=== PATIENT | female | born 1970 | race Caucasian/White ===

== ENCOUNTER 2019-02-03 23:35 | Emergency (ER) | payer OTHER ==
[2019-02-03] MEDS ORDERED: predniSONE 20 MG Tab PO ONE (23:36)
--- NOTE | 2019-02-03 23:57 | EDM.PDOC ---
ED HPI GENERAL MEDICAL PROBLEM - General Chief Complaint: Respiratory Problem Stated Complaint: RESPITORY Time Seen by Provider: 02/03/19 23:54 Source of Information: Reports: Patient History Limitations: Reports: No Limitations - History of Present Illness INITIAL COMMENTS - FREE TEXT/NARRATIVE: Cough x 2 days,associated with wheezing,sob. on treatment for Sinusitis. She has tried her nephews inhaler,felt better. Denies fever or chills ,or chest pain. Upper Chest Pain Score (Numeric/FACES): 4 - Related Data Allergies Allergy/AdvReac Type Severity Reaction Status Date / Time latex Allergy Cannot Verified 02/03/19 23:47 Remember morphine Allergy Cannot Verified 02/03/19 23:47 Remember Penicillins Allergy Cannot Verified 02/03/19 23:47 Remember Home Meds: Home Meds NK [No Known Home Meds] 02/03/19 [History] ED ROS GENERAL - Review of Systems Review Of Systems: ROS reveals no pertinent complaints other than HPI. ED EXAM, GENERAL - Physical Exam Exam: See Below Exam Limited By: No Limitations General Appearance: Alert, WD/WN, No Apparent Distress Ear Exam: Bilateral Ear: Auricle Normal, Canal Normal, TM normal Nose: Normal Inspection Throat/Mouth: Normal Inspection Respiratory/Chest: No Respiratory Distress, Lungs Clear. No: Respiratory Distress, Wheezing Cardiovascular: Normal Peripheral Pulses, Regular Rate, Rhythm Course - Vital Signs Last Recorded V/S: Last Vital Signs Temp 98.0 F 02/03/19 23:35 Pulse 97 02/03/19 23:55 Resp 18 02/03/19 23:55 BP 134/90 02/03/19 23:55 Pulse Ox 98 02/03/19 23:55 - Orders/Labs/Meds Meds: Medications Discontinued Medications Generic Name Dose Route Start Last Admin Trade Name Freq PRN Reason Stop Dose Admin Prednisone 160 mg 02/03/19 23:36 Prednisone PO 02/03/19 23:37 .STK-MED ONE Departure - Departure Time of Disposition: 23:56 Disposition: Home, Self-Care 01 Condition: Good Clinical Impression: Acute bronchiolitis - Discharge Information Instructions: Prednisone tablets, Steps to Quit Smoking, Acute Bronchitis, Adult Referrals: PCP,Unknown [Primary Care Provider] - Forms: ED Department Discharge Additional Instructions: Follow up as needed Increased fluids Stop smoking - Problem List & Annotations (1) Acute bronchitis SNOMED Code(s): 32818519 Code(s): J20.9 - ACUTE BRONCHITIS, UNSPECIFIED Status: Acute Qualifiers: Bronchitis organism: unspecified organism Qualified Code(s): J20.9 - Acute bronchitis, unspecified - Problem List Review Problem List Initiated/Reviewed/Updated: Yes - Assessment/Plan Plan: Prednisone 20 mg po bid. Tobacco cessation
== END 2019-02-04 00:03 | disposition home or self-care (01) ==
LOC: FB.ED 23:35
DX: J21.9 Acute bronchiolitis, unspecified (principal); Z88.5 Allergy status to narcotic agent; Z91.040 Latex allergy status; Z88.0 Allergy status to penicillin
CPT/HCPCS: 99282; A9270

== ENCOUNTER 2019-07-23 14:38 | Emergency (ER) | payer OTHER ==
[2019-07-23] MEDS ORDERED: metroNIDAZOLE 500 MG Tab PO ONE (14:39)
[2019-07-23] MEDS ORDERED: Acetaminophen/HYDROcodone 325-5 MG Tab PO ONE (14:39)
[2019-07-23] MEDS ORDERED: Levofloxacin 750 MG Tab PO ONE (14:39)
[2019-07-23] MEDS ORDERED: Acetaminophen/HYDROcodone 325-10 MG Tab PO ONE (14:59)
[2019-07-23] MEDS ORDERED: Ondansetron 4 MG Tab.DIS PO ONE (15:03)
--- NOTE | 2019-07-23 15:04 | EDM.PDOC ---
ED HPI GENERAL MEDICAL PROBLEM - General Chief Complaint: Abdominal Pain Stated Complaint: DIVERTICULITIS Time Seen by Provider: 07/23/19 15:01 Source of Information: Reports: Patient History Limitations: Reports: No Limitations - History of Present Illness INITIAL COMMENTS - FREE TEXT/NARRATIVE: Presents with LLQ abdominal pain x 2 days associated w/ nausea, chills, diarrhea , and headache. History of recurrent diverticulitis. Prior surgical history includes cholecystectomy, appendectomy and hysterectomy. 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 Duration: Day(s): (2) Location: Reports: Abdomen Severity: Moderate mid abd Pain Score (Numeric/FACES): 8 - Related Data Allergies Allergy/AdvReac Type Severity Reaction Status Date / Time latex Allergy Cannot Verified 02/03/19 23:47 Remember morphine Allergy Cannot Verified 02/03/19 23:47 Remember Penicillins Allergy Cannot Verified 02/03/19 23:47 Remember Home Meds: Home Meds Acetaminophen/HYDROcodone [[place] 325-5 MG] 1 - 2 tab PO Q6H PRN #12 tab [Rx] Levofloxacin [Levaquin] 750 mg PO DAILY #7 tablet 07/23/19 [Rx] levoFLOXacin [Levaquin] 750 mg PO DAILY 3 Days #3 tab 07/23/19 [Rx] metroNIDAZOLE [Flagyl] 500 mg PO QID #12 tab 07/23/19 [Rx] metroNIDAZOLE [Flagyl] 500 mg PO QID #28 tab 07/23/19 [Rx] Past Medical History Respiratory History: Reports: Other (See Below) Other Respiratory History: Pneumonia last year Gastrointestinal History: Reports: Diverticulosis Genitourinary History: Reports: Other (See Below) Other Genitourinary History: One fx kidney. One non fx. 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 Non CA. Female Surgical History: Reports: Hysterectomy Social & Family History - Family History Family Medical History: Noncontributory - Tobacco Use Smoking Status *Q: Current Every Day Smoker Tobacco Use Within Last Twelve Months: Cigarettes - Caffeine Use Caffeine Use: Reports: Coffee - Alcohol Use Alcohol Use History: Yes Alcohol Use in Last Twelve Months: Yes Alcohol Use Frequency: Rarely ED ROS GENERAL - Review of Systems Review Of Systems: Comprehensive ROS is negative, except as noted in HPI. ED EXAM, GI/ABD - Physical Exam Exam: See Below Exam Limited By: No Limitations General Appearance: Alert, WD/WN, No Apparent Distress Throat/Mouth: No Airway Compromise Head: Atraumatic, Normocephalic Neck: Full Range of Motion Respiratory/Chest: No Respiratory Distress, Lungs Clear, Normal Breath Sounds Cardiovascular: Regular Rate, Rhythm, No Murmur GI/Abdominal Exam: Normal Bowel Sounds, Soft, No Distention, Tender (LLQ) Back Exam: Full Range of Motion Extremities: Normal Range of Motion Neurological: Alert, Normal Cognition Psychiatric: Normal Affect, Normal Mood Skin Exam: Warm, Dry, Intact Course - Vital Signs Last Recorded V/S: Last Vital Signs Temp 36.3 C 07/23/19 14:38 Pulse 93 07/23/19 14:38 Resp 17 07/23/19 14:38 BP 118/84 07/23/19 14:38 Pulse Ox 97 07/23/19 14:38 - Orders/Labs/Meds Orders: Active Orders 24 hr Category Date Time Status Abdomen Pelvis wo Cont [CT] Stat Exams 07/23/19 15:00 Taken Labs: Laboratory Tests 07/23/19 07/23/19 07/23/19 Range/Units 15:10 15:10 15:10 WBC 15.7 H (4.5-12.0) X10-3/uL RBC 5.08 (3.23-5.20) x10(6)uL Hgb 14.9 (11.5-15.5) g/dL Hct 44.2 (30.0-51.3) % MCV 87.1 (80-96) fL MCH 29.3 (27.7-33.6) pg MCHC 33.7 (32.2-35.4) g/dL RDW 13.8 (11.5-15.5) % Plt Count 264 (125-369) X10(3)uL MPV 8.9 (7.4-10.4) fL Neut % (Auto) 64.4 (46-82) % Lymph % (Auto) 29.6 (13-37) % [place] % (Auto) 4.6 (4-12) % Eos % (Auto) 1 (1.0-5.0) % Baso % (Auto) 0 (0-2) % Neut # (Auto) 10.1 H (1.6-8.3) # Lymph # (Auto) 4.6 (0.6-5.0) # [place] # (Auto) 0.7 (0.0-1.3) # Eos # (Auto) 0.2 (0.0-0.8) # Baso # (Auto) 0.1 (0.0-0.2) # Sodium 141 (135-145) mmol/L Potassium 3.6 (3.5-5.3) mmol/L Chloride 104 (100-110) mmol/L Carbon Dioxide 24 (21-32) mmol/L BUN 11 (7-18) mg/dL Creatinine 1.2 H (0.55-1.02) mg/dL Est Cr Clr Drug Dosing TNP Estimated GFR (MDRD) 48 L (>60) BUN/Creatinine Ratio 9.2 (9-20) Glucose 173 H (80-116) mg/dL Calcium 9.0 (8.6-10.2) mg/dL Total Bilirubin 0.4 (0.1-1.3) mg/dL AST 18 (5-25) IU/L ALT 49 H (12-36) U/L Alkaline Phosphatase 113 H (56-112) IU/L Total Protein 7.8 (6.0-8.0) g/dL Albumin 3.4 L (3.5-5.2) g/dL Globulin 4.4 g/dL Albumin/Globulin Ratio 0.8 Lipase 97 (73-393) U/L Urine Color (YELLOW) Urine Appearance (CLEAR) Urine pH (5.0-6.5) Ur Specific [place] (1.010-1.025) Urine Protein (NEGATIVE) mg/dL Urine Glucose (UA) (NORMAL) mg/dL Urine Ketones (NEGATIVE) mg/dL Urine Occult Blood (NEGATIVE) Urine Nitrite (NEGATIVE) Urine Bilirubin (NEGATIVE) Urine Urobilinogen (NEGATIVE) mg/dL Ur Leukocyte Esterase (NEGATIVE) Urine RBC (0-5) Urine WBC (0-5) Ur Squamous Epith Cells (NS,R,O) Urine Bacteria (NS) Urine Mucus (NS) 07/23/19 Range/Units 15:22 WBC (4.5-12.0) X10-3/uL RBC (3.23-5.20) x10(6)uL Hgb (11.5-15.5) g/dL Hct (30.0-51.3) % MCV (80-96) fL MCH (27.7-33.6) pg MCHC (32.2-35.4) g/dL RDW (11.5-15.5) % Plt Count (125-369) X10(3)uL MPV (7.4-10.4) fL Neut % (Auto) (46-82) % Lymph % (Auto) (13-37) % [place] % (Auto) (4-12) % Eos % (Auto) (1.0-5.0) % Baso % (Auto) (0-2) % Neut # (Auto) (1.6-8.3) # Lymph # (Auto) (0.6-5.0) # [place] # (Auto) (0.0-1.3) # Eos # (Auto) (0.0-0.8) # Baso # (Auto) (0.0-0.2) # Sodium (135-145) mmol/L Potassium (3.5-5.3) mmol/L Chloride (100-110) mmol/L Carbon Dioxide (21-32) mmol/L BUN (7-18) mg/dL Creatinine (0.55-1.02) mg/dL Est Cr Clr Drug Dosing Estimated GFR (MDRD) (>60) BUN/Creatinine Ratio (9-20) Glucose (80-116) mg/dL Calcium (8.6-10.2) mg/dL Total Bilirubin (0.1-1.3) mg/dL AST (5-25) IU/L ALT (12-36) U/L Alkaline Phosphatase (56-112) IU/L Total Protein (6.0-8.0) g/dL Albumin (3.5-5.2) g/dL Globulin g/dL Albumin/Globulin Ratio Lipase (73-393) U/L Urine Color Yellow (YELLOW) Urine Appearance Cloudy (CLEAR) Urine pH 5.0 (5.0-6.5) Ur Specific [place] 1.025 (1.010-1.025) Urine Protein 30 H (NEGATIVE) mg/dL Urine Glucose (UA) Normal (NORMAL) mg/dL Urine Ketones 15 H (NEGATIVE) mg/dL Urine Occult Blood Moderate H (NEGATIVE) Urine Nitrite Negative (NEGATIVE) Urine Bilirubin Small H (NEGATIVE) Urine Urobilinogen Normal (NEGATIVE) mg/dL Ur Leukocyte Esterase Negative (NEGATIVE) Urine RBC 5-10 H (0-5) Urine WBC 0-5 (0-5) Ur Squamous Epith Cells Moderate H (NS,R,O) Urine Bacteria Moderate H (NS) Urine Mucus Moderate H (NS) Meds: Medications Discontinued Medications Generic Name Dose Route Start Last Admin Trade Name Freq PRN Reason Stop Dose Admin Hydrocodone Bitart/Acetaminophen 1 tab 07/23/19 14:59 07/23/19 15:14 [place] 325-10 Mg PO 07/23/19 15:00 1 tab ONETIME ONE Administration Iopamidol 100 ml 07/23/19 15:05 Isovue-370 (76%) IV 07/23/19 15:06 ONETIME ONE Ondansetron HCl 4 mg 07/23/19 15:03 07/23/19 15:13 Zofran Odt PO 07/23/19 15:04 4 mg ONETIME ONE Administration - Radiology Interpretation Free Text/Narrative:: CT Abd/Pelvis w/o contrast: Acute uncomplicated sigmoid diverticulitis. No perforation or abscess. ([facility], Dr. Cueva) - Re-Assessments/Exams Free Text/Narrative Re-Assessment/Exam: 07/23/19 15:54 Pain improved after [place] 10/325 PO. Departure - Departure Time of Disposition: 15:56 Disposition: Home, Self-Care 01 Condition: Good Clinical Impression: Sigmoid diverticulitis - Discharge Information *PRESCRIPTION DRUG MONITORING PROGRAM REVIEWED*: Yes *COPY OF PRESCRIPTION DRUG MONITORING REPORT IN PATIENT DRAKE: Not Applicable Prescriptions: Acetaminophen/HYDROcodone [[place] 325-5 MG] 1 - 2 tab PO Q6H PRN #12 tab PRN Reason: Pain Levofloxacin [Levaquin] 750 mg PO DAILY #7 tablet levoFLOXacin [Levaquin] 750 mg PO DAILY 3 Days #3 tab metroNIDAZOLE [Flagyl] 500 mg PO QID #12 tab metroNIDAZOLE [Flagyl] 500 mg PO QID #28 tab Instructions: Diverticulitis, [id number] Referrals: Klaudia Olvera NP [Primary Care Provider] - 3 Days Forms: ED Department Discharge Additional Instructions: Fill the prescriptions for Levaquin, Flagyl and [place] and take as directed. Follow up with your primary physician in 3-4 days. Return to the ER if symptoms worsen. Sepsis Event Note - Focused Exam Vital Signs: Vital Signs Temp Pulse Resp BP Pulse Ox 07/23/19 14:38 36.3 C 93 17 118/84 97 Date Exam was Performed: 07/23/19 Time Exam was Performed: 15:53 - My Orders Last 24 Hours: My Active Orders 07/23/19 15:00 Abdomen Pelvis wo Cont [CT] Stat - Assessment/Plan Last 24 Hours: My Active Orders 07/23/19 15:00 Abdomen Pelvis wo Cont [CT] Stat
[2019-07-23] MEDS ORDERED: Iopamidol 755 Mg/ML 100 ML Bottle IV ONE (15:05)
[2019-07-23] MEDS ORDERED: Levofloxacin 750 MG Tab PO SCH (16:15)
[2019-07-23] MEDS ORDERED: metroNIDAZOLE 500 MG Tab PO SCH (17:00)
== END 2019-07-23 16:28 | disposition home or self-care (01) ==
LOC: FB.ED 14:38
DX: K57.32 Diverticulitis of large intestine without perforation or abscess without bleeding (principal); E66.9 Obesity, unspecified; Z68.34 Body mass index [BMI] 34.0-34.9, adult; F17.210 Nicotine dependence, cigarettes, uncomplicated; Z88.5 Allergy status to narcotic agent; Z88.0 Allergy status to penicillin; Z91.040 Latex allergy status; Z79.899 Other long term (current) drug therapy
CPT/HCPCS: 36415; 74176; 80053; 81001; 83690; 85025; 99284; A9270

== ENCOUNTER 2020-02-10 12:27 | Inpatient (IN) | payer OTHER ==
[2020-02-10] MEDS ORDERED: HYDROmorphone 2 MG/ML SDV IVPUSH ONE (13:17)
[2020-02-10] MEDS ORDERED: Sodium Chloride 0.9% 1,000 ML IV ONE (13:17)
[2020-02-10] MEDS ORDERED: Ondansetron 4 MG/2 ML SDV IVPUSH ONE (13:17)
--- NOTE | 2020-02-10 13:17 | EDM.PDOC ---
ED HPI GENERAL MEDICAL PROBLEM - General Stated Complaint: STOMACH PAIN Time Seen by Provider: 02/10/20 14:00 Source of Information: Reports: Patient History Limitations: Reports: No Limitations - History of Present Illness INITIAL COMMENTS - FREE TEXT/NARRATIVE: pt comes in ambulatory with c/o abd pain building up over the past week, now describe dull constant pain all across her abd, with nusea and loos stool, denies fever, chills or any other associated sx, report Hx of hysterectomy, appendectomy, cholecystectomy and Hx of diverticulitis. Abdomen Pain Score (Numeric/FACES): 10 - Related Data Allergies Allergy/AdvReac Type Severity Reaction Status Date / Time latex Allergy Cannot Verified 02/03/19 23:47 Remember morphine Allergy Cannot Verified 02/03/19 23:47 Remember Penicillins Allergy Cannot Verified 02/03/19 23:47 Remember Home Meds: Home Meds Acetaminophen/HYDROcodone [[place] 325-5 MG] 1 - 2 tab PO Q6H PRN #12 tab 07/23/19 [Rx] levoFLOXacin [Levaquin] 750 mg PO DAILY #7 tablet 07/23/19 [Rx] levoFLOXacin [Levaquin] 750 mg PO DAILY 3 Days #3 tab 07/23/19 [Rx] metroNIDAZOLE [Flagyl] 500 mg PO QID #12 tab 07/23/19 [Rx] metroNIDAZOLE [Flagyl] 500 mg PO QID #28 tab 07/23/19 [Rx] Past Medical History Respiratory History: Reports: Other (See Below) Other Respiratory History: Pneumonia last year Gastrointestinal History: Reports: Diverticulosis Genitourinary History: Reports: Other (See Below) Other Genitourinary History: One fx kidney. One non fx. 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 Non CA. Female Surgical History: Reports: Hysterectomy Social & Family History - Family History Family Medical History: Noncontributory - Caffeine Use Caffeine Use: Reports: Coffee ED ROS GENERAL - Review of Systems Review Of Systems: See Below Constitutional: Reports: Fatigue. Denies: Fever, Chills HEENT: Reports: No Symptoms Respiratory: Reports: No Symptoms Cardiovascular: Reports: No Symptoms GI/Abdominal: Reports: Abdominal Pain, Anorexia, Diarrhea, Nausea. Denies: Black Stool, Vomiting : Reports: No Symptoms Musculoskeletal: Reports: No Symptoms Skin: Reports: No Symptoms Neurological: Reports: No Symptoms Psychiatric: Reports: No Symptoms ED EXAM, GENERAL - Physical Exam Exam: See Below Exam Limited By: No Limitations General Appearance: Alert, Moderate Distress Eye Exam: Bilateral Eye: Normal Inspection Ears: Normal External Exam Nose: Normal Inspection Throat/Mouth: Normal Inspection Neck: Normal Inspection, Supple, Non-Tender Respiratory/Chest: No Respiratory Distress, Lungs Clear, Normal Breath Sounds Cardiovascular: Normal Peripheral Pulses, Regular Rate, Rhythm GI/Abdominal: Normal Bowel Sounds, Soft, Non-Tender Extremities: Normal Inspection, Normal Range of Motion Neurological: Alert, Oriented, CN II-XII Intact Skin Exam: Warm Course - Vital Signs Text/Narrative:: labs and results were explained to pt. pt is resting comfortable after fluids, zofran znd dilaudid. she has acute diverticulitis , discussed with Dr Holder and she was in acceptance of pt care. cipro and flagyl were started. Last Recorded V/S: Last Vital Signs Temp 35.9 C L 02/10/20 14:04 Pulse 68 02/10/20 14:04 Resp 18 02/10/20 14:04 BP 98/67 02/10/20 14:04 Pulse Ox 93 L 02/10/20 14:04 - Orders/Labs/Meds Orders: Active Orders 24 hr Category Date Time Status Abdomen Pelvis wo Cont [CT] Stat Exams 02/10/20 14:18 Taken Sodium Chloride 0.9% [Normal Saline] 1,000 ml Med 02/10/20 13:17 Active IV .BOLUS Medication Orders Sodium Chloride (Normal Saline) 1,000 mls @ 999 drops/hr IV .BOLUS ONE Stop: 02/11/20 04:17 Last Admin: 02/10/20 13:40 Dose: 999 drops/hr Documented by: MAK Labs: Laboratory Tests 02/10/20 02/10/20 02/10/20 Range/Units 13:30 13:30 13:30 WBC 17.0 H (4.5-12.0) X10-3/uL RBC 5.38 H (3.23-5.20) x10(6)uL Hgb 15.3 (11.5-15.5) g/dL Hct 46.8 (30.0-51.3) % MCV 87.0 (80-96) fL MCH 28.5 (27.7-33.6) pg MCHC 32.8 (32.2-35.4) g/dL RDW 14.3 (11.5-15.5) % Plt Count 251 (125-369) X10(3)uL Sodium 138 (135-145) mmol/L Potassium 3.8 (3.5-5.3) mmol/L Chloride 102 (100-110) mmol/L Carbon Dioxide 27 (21-32) mmol/L BUN 17 (7-18) mg/dL Creatinine 1.6 H (0.55-1.02) mg/dL Est Cr Clr Drug Dosing TNP Estimated GFR (MDRD) 34 L (>60) BUN/Creatinine Ratio 10.6 (9-20) Glucose 107 (80-116) mg/dL Calcium 9.0 (8.6-10.2) mg/dL Total Bilirubin 0.4 (0.1-1.3) mg/dL AST 31 H D (5-25) IU/L ALT 73 H D (12-36) U/L Alkaline Phosphatase 124 H (56-112) IU/L Total Protein 7.9 (6.0-8.0) g/dL Albumin 3.7 (3.5-5.2) g/dL Globulin 4.2 g/dL Albumin/Globulin Ratio 0.9 Amylase 51 (25-115) U/L Lipase 94 (73-393) U/L Urine Color (YELLOW) Urine Appearance (CLEAR) Urine pH (5.0-6.5) Ur Specific [place] (1.010-1.025) Urine Protein (NEGATIVE) mg/dL Urine Glucose (UA) (NORMAL) mg/dL Urine Ketones (NEGATIVE) mg/dL Urine Occult Blood (NEGATIVE) Urine Nitrite (NEGATIVE) Urine Bilirubin (NEGATIVE) Urine Urobilinogen (NEGATIVE) mg/dL Ur Leukocyte Esterase (NEGATIVE) Urine RBC (0-5) Urine WBC (0-5) Ur Squamous Epith Cells (NS,R,O) Urine Bacteria (NS) 02/10/20 Range/Units 13:35 WBC (4.5-12.0) X10-3/uL RBC (3.23-5.20) x10(6)uL Hgb (11.5-15.5) g/dL Hct (30.0-51.3) % MCV (80-96) fL MCH (27.7-33.6) pg MCHC (32.2-35.4) g/dL RDW (11.5-15.5) % Plt Count (125-369) X10(3)uL Sodium (135-145) mmol/L Potassium (3.5-5.3) mmol/L Chloride (100-110) mmol/L Carbon Dioxide (21-32) mmol/L BUN (7-18) mg/dL Creatinine (0.55-1.02) mg/dL Est Cr Clr Drug Dosing Estimated GFR (MDRD) (>60) BUN/Creatinine Ratio (9-20) Glucose (80-116) mg/dL Calcium (8.6-10.2) mg/dL Total Bilirubin (0.1-1.3) mg/dL AST (5-25) IU/L ALT (12-36) U/L Alkaline Phosphatase (56-112) IU/L Total Protein (6.0-8.0) g/dL Albumin (3.5-5.2) g/dL Globulin g/dL Albumin/Globulin Ratio Amylase (25-115) U/L Lipase (73-393) U/L Urine Color Yellow (YELLOW) Urine Appearance Cloudy (CLEAR) Urine pH 5.0 (5.0-6.5) Ur Specific [place] 1.025 (1.010-1.025) Urine Protein 30 H (NEGATIVE) mg/dL Urine Glucose (UA) Normal (NORMAL) mg/dL Urine Ketones 15 H (NEGATIVE) mg/dL Urine Occult Blood Negative (NEGATIVE) Urine Nitrite Positive H (NEGATIVE) Urine Bilirubin Small H (NEGATIVE) Urine Urobilinogen 1 H (NEGATIVE) mg/dL Ur Leukocyte Esterase Large H (NEGATIVE) Urine RBC 0-5 (0-5) Urine WBC 10-20 H (0-5) Ur Squamous Epith Cells Many H (NS,R,O) Urine Bacteria Many H (NS) Meds: Medications Generic Name Dose Route Start Last Admin Trade Name Freq PRN Reason Stop Dose Admin Sodium Chloride 1,000 mls @ 999 drops/hr 02/10/20 13:17 08/06/20 13:40 Normal Saline IV 02/11/20 04:17 999 drops/hr .BOLUS ONE Administration Discontinued Medications Generic Name Dose Route Start Last Admin Trade Name Rosalino PRN Reason Stop Dose Admin Hydromorphone HCl 1 mg 02/10/20 13:17 02/10/20 13:49 Dilaudid IVPUSH 02/10/20 13:18 1 mg ONETIME ONE Administration Ondansetron HCl 4 mg 02/10/20 13:17 02/10/20 13:46 Zofran IVPUSH 02/10/20 13:18 4 mg ONETIME ONE Administration Departure - Departure Time of Disposition: 16:09 Disposition: Admitted As Inpatient 67 Clinical Impression: Acute diverticulitis - Discharge Information Sepsis Event Note (ED) - Focused Exam Vital Signs: Vital Signs Temp Pulse Resp BP Pulse Ox 02/10/20 14:04 35.9 C L 68 18 98/67 93 L - My Orders Last 24 Hours: My Active Orders 02/10/20 13:17 Sodium Chloride 0.9% [Normal Saline] 1,000 ml IV .BOLUS 02/10/20 14:18 Abdomen Pelvis wo Cont [CT] Stat - Assessment/Plan Last 24 Hours: My Active Orders 02/10/20 13:17 Sodium Chloride 0.9% [Normal Saline] 1,000 ml IV .BOLUS 02/10/20 14:18 Abdomen Pelvis wo Cont [CT] Stat
[2020-02-10] MEDS ORDERED: Ciprofloxacin in D5W 400 MG in Premix Bag 1 BAG IV ONE ×2 (16:10)
[2020-02-10] MEDS ORDERED: metroNIDAZOLE/Normal Saline 500 MG in Premix Bag 1 BAG IV ONE (16:10)
[2020-02-10] MEDS ORDERED: Acetaminophen/HYDROcodone 325-5 MG Tab PO PRN (17:20)
[2020-02-10] MEDS ORDERED: Acetaminophen 325 MG Tab PO PRN (17:20)
[2020-02-10] MEDS: Ciprofloxacin in D5W 400 MG in Premix Bag 1 BAG IV SCH ×2 (17:30)
[2020-02-10] MEDS ORDERED: Sodium Chloride 0.9% 10 ML Syringe FLUSH PRN (17:30)
--- NOTE | 2020-02-10 17:36 | PCM.HP.2 ---
H&P History of Present Illness - General Date of Service: 02/10/20 Admit Problem/Dx: Admission Diagnosis/Problem Admission Diagnosis/Problem Diverticulitis Source of Information: Patient, EMS Notes Reviewed - History of Present Illness Initial Comments - Free Text/Narative: Gissel presented to ER for abdominal pain, nausea, diarrhea after being seen in [facility] today, has been having symptoms since Feb 04. Initially thought it was her kidney, as she noticed blood in her urine, then she had diffuse belly pain, nausea but no vomiting. She only has the one on the right, just a nub on the left, had done a 24 hr urine yesterday which she brought into the clinic today. No fevers, chills, runny nose, sore throat, shortness of breath, chest pain, dysuria or frequency. No rash, easily bruising or bleeding. No seasonal allergies or immunologic conditions. History of cholecystectomy, appendectomy and hysterectomy with oophorectomy. 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 Abdomen Pain Score (Numeric/FACES): 10 - Related Data Allergies/Adverse Reactions: Allergies Allergy/AdvReac Type Severity Reaction Status Date / Time latex Allergy Cannot Verified 02/03/19 23:47 Remember morphine Allergy Cannot Verified 02/03/19 23:47 Remember Penicillins Allergy Cannot Verified 02/03/19 23:47 Remember Past Medical History HEENT History: Reports: None Cardiovascular History: Reports: High Cholesterol, Hypertension Respiratory History: Reports: Other (See Below) Other Respiratory History: Pneumonia last year Gastrointestinal History: Reports: Diverticulosis Other Gastrointestinal History: Hx Diverticulitis Genitourinary History: Reports: Other (See Below) Other Genitourinary History: One fx kidney. One non fx. 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 Non CA. Female Surgical History: Reports: Hysterectomy, Salpingo-Oophorectomy Social & Family History - Family History Family Medical History: Noncontributory - Tobacco Use Smoking Status *Q: Current Every Day Smoker Years of Tobacco use: 15 Packs/Tins Daily: 0.5 - Caffeine Use Caffeine Use: Reports: Coffee - Recreational Drug Use Recreational Drug Use: No H&P Review of Systems - Review of Systems: Review Of Systems: Comprehensive ROS is negative, except as noted in HPI. Exam - Exam Exam: See Below - Vital Signs Vital Signs: Last Vital Signs Temp 96.7 F L 02/10/20 14:04 Pulse 68 02/10/20 14:04 Resp 18 02/10/20 14:04 BP 98/67 02/10/20 14:04 Pulse Ox 93 L 02/10/20 14:04 Weight: 218 lb - Exam General: Alert, Oriented, Cooperative, Mild Distress HEENT: PERRLA, Conjunctiva Clear, Hearing Intact, Mucosa Moist & [place], Glasses Neck: Supple, Trachea Midline. No: Lymphadenopathy Lungs: Clear to Auscultation, Normal Respiratory Effort, Decreased Breath Sounds (bases). No: Crackles, Rales, Wheezing Cardiovascular: Regular Rate, Regular Rhythm GI/Abdominal Exam: Soft, No Distention, Guarding, Tender (diffuse, RUQ>LLQ), Abnormal Bowel Sounds (hypoactive x4.). No: Rigid, Rebound (Female) Exam: Deferred Rectal (Female) Exam: Deferred Back Exam: No: CVA Tenderness (R) Extremities: Pedal Edema (trace) Peripheral Pulses: 2+: Radial (L), Radial (R) Skin: Warm, Dry, Intact Neurological: Cranial Nerves Intact Neuro Extensive - Mental Status: Alert, Oriented x3, Normal Mood/Affect - Patient Data Lab Results Last 24 hrs: Laboratory Results - last 24 hr 02/10/20 02/10/20 02/10/20 Range/Units 13:30 13:30 13:30 WBC 17.0 H (4.5-12.0) X10-3/uL RBC 5.38 H (3.23-5.20) x10(6)uL Hgb 15.3 (11.5-15.5) g/dL Hct 46.8 (30.0-51.3) % MCV 87.0 (80-96) fL MCH 28.5 (27.7-33.6) pg MCHC 32.8 (32.2-35.4) g/dL RDW 14.3 (11.5-15.5) % Plt Count 251 (125-369) X10(3)uL Sodium 138 (135-145) mmol/L Potassium 3.8 (3.5-5.3) mmol/L Chloride 102 (100-110) mmol/L Carbon Dioxide 27 (21-32) mmol/L BUN 17 (7-18) mg/dL Creatinine 1.6 H (0.55-1.02) mg/dL Est Cr Clr Drug Dosing TNP Estimated GFR (MDRD) 34 L (>60) BUN/Creatinine Ratio 10.6 (9-20) Glucose 107 (80-116) mg/dL Calcium 9.0 (8.6-10.2) mg/dL Total Bilirubin 0.4 (0.1-1.3) mg/dL AST 31 H D (5-25) IU/L ALT 73 H D (12-36) U/L Alkaline Phosphatase 124 H (56-112) IU/L Total Protein 7.9 (6.0-8.0) g/dL Albumin 3.7 (3.5-5.2) g/dL Globulin 4.2 g/dL Albumin/Globulin Ratio 0.9 Amylase 51 (25-115) U/L Lipase 94 (73-393) U/L Urine Color (YELLOW) Urine Appearance (CLEAR) Urine pH (5.0-6.5) Ur Specific [place] (1.010-1.025) Urine Protein (NEGATIVE) mg/dL Urine Glucose (UA) (NORMAL) mg/dL Urine Ketones (NEGATIVE) mg/dL Urine Occult Blood (NEGATIVE) Urine Nitrite (NEGATIVE) Urine Bilirubin (NEGATIVE) Urine Urobilinogen (NEGATIVE) mg/dL Ur Leukocyte Esterase (NEGATIVE) Urine RBC (0-5) Urine WBC (0-5) Ur Squamous Epith Cells (NS,R,O) Urine Bacteria (NS) 02/10/20 Range/Units 13:35 WBC (4.5-12.0) X10-3/uL RBC (3.23-5.20) x10(6)uL Hgb (11.5-15.5) g/dL Hct (30.0-51.3) % MCV (80-96) fL MCH (27.7-33.6) pg MCHC (32.2-35.4) g/dL RDW (11.5-15.5) % Plt Count (125-369) X10(3)uL Sodium (135-145) mmol/L Potassium (3.5-5.3) mmol/L Chloride (100-110) mmol/L Carbon Dioxide (21-32) mmol/L BUN (7-18) mg/dL Creatinine (0.55-1.02) mg/dL Est Cr Clr Drug Dosing Estimated GFR (MDRD) (>60) BUN/Creatinine Ratio (9-20) Glucose (80-116) mg/dL Calcium (8.6-10.2) mg/dL Total Bilirubin (0.1-1.3) mg/dL AST (5-25) IU/L ALT (12-36) U/L Alkaline Phosphatase (56-112) IU/L Total Protein (6.0-8.0) g/dL Albumin (3.5-5.2) g/dL Globulin g/dL Albumin/Globulin Ratio Amylase (25-115) U/L Lipase (73-393) U/L Urine Color Yellow (YELLOW) Urine Appearance Cloudy (CLEAR) Urine pH 5.0 (5.0-6.5) Ur Specific [place] 1.025 (1.010-1.025) Urine Protein 30 H (NEGATIVE) mg/dL Urine Glucose (UA) Normal (NORMAL) mg/dL Urine Ketones 15 H (NEGATIVE) mg/dL Urine Occult Blood Negative (NEGATIVE) Urine Nitrite Positive H (NEGATIVE) Urine Bilirubin Small H (NEGATIVE) Urine Urobilinogen 1 H (NEGATIVE) mg/dL Ur Leukocyte Esterase Large H (NEGATIVE) Urine RBC 0-5 (0-5) Urine WBC 10-20 H (0-5) Ur Squamous Epith Cells Many H (NS,R,O) Urine Bacteria Many H (NS) Result Diagrams: 02/10/20 13:30 02/10/20 13:30 Sepsis Event Note - Evaluation Sepsis Screening Result: No Definite Risk - Focused Exam Vital Signs: Vital Signs Temp Pulse Resp BP Pulse Ox 02/10/20 14:04 96.7 F L 68 18 98/67 93 L Date Exam was Performed: 02/10/20 Time Exam was Performed: 17:40 *Q Meaningful Use (ADM) - VTE Risk Assess *Q Each Risk Factor Represents 1 Point: Age 41 - 59 years, Obesity ( BMI > 25 kg/m2) Total Score 1 Point Risk Factors: 2 Each Risk Factor Represents 2 Points: None Total Score 2 Point Risk Factors: 0 Each Risk Factor Represents 3 Points: None Total Score 3 Point Risk Factors: 0 Each Risk Factor Represents 5 Points: None Total Score 5 Point Risk Factors: 0 Venous Thromboembolism Risk Factor Score *Q: 2 - Problem List (1) Acute diverticulitis SNOMED Code(s): 471461897 ICD Code: K57.92 - DVTRCLI OF INTEST, PART UNSP, W/O PERF OR ABSCESS W/O BLEED Status: Acute Current Visit: Yes (2) UTI (urinary tract infection) SNOMED Code(s): 72789345 ICD Code: N39.0 - URINARY TRACT INFECTION, SITE NOT SPECIFIED Status: Acute Current Visit: Yes (3) Atrophy of left kidney SNOMED Code(s): 845674316 ICD Code: N26.1 - ATROPHY OF KIDNEY (TERMINAL) Status: Chronic Current Visit: Yes (4) Hypertension SNOMED Code(s): 12059464 ICD Code: I10 - ESSENTIAL (PRIMARY) HYPERTENSION Status: Acute Current Visit: Yes Problem Details: new onset, started on Lisinopril but only took on 02/08, had dry cough with it. (5) Hyperlipidemia SNOMED Code(s): 57103888 ICD Code: E78.5 - HYPERLIPIDEMIA, UNSPECIFIED Status: Acute Current Visit: Yes (6) Migraine SNOMED Code(s): 17975663 ICD Code: G43.909 - MIGRAINE, UNSP, NOT INTRACTABLE, WITHOUT STATUS MIGRAINOSUS Status: Chronic Current Visit: Yes Problem List Initiated/Reviewed/Updated: Yes Orders Last 24hrs: Active Orders 24 hr Category Date Time Status Patient Status [ADT] Routine ADT 02/10/20 17:20 Ordered Ambulate [RC] PER UNIT ROUTINE Care 02/10/20 17:21 Ordered Antiembolic Devices [RC] .Routine Care 02/10/20 17:20 Ordered Oxygen Therapy [RC] PRN Care 02/10/20 17:20 Ordered Up ad Susan [RC] ASDIRECTED Care 02/10/20 17:20 Ordered VTE/DVT Education [RC] Per Unit Routine Care 02/10/20 17:20 Ordered Vital Signs [RC] QSHIFT Care 02/10/20 17:20 Ordered Clear Liquid Diet [DIET] Diet 02/10/20 Dinner Ordered Abdomen Pelvis wo Cont [CT] Stat Exams 02/10/20 14:18 Taken BASIC METABOLIC PANEL,BMP [CHEM] Routine Lab 02/11/20 06:00 Ordered CBC WITH AUTO DIFF [HEME] Routine Lab 02/11/20 06:00 Ordered CULTURE URINE [RM] Routine Lab 02/10/20 17:20 Ordered Acetaminophen [Tylenol] Med 02/10/20 17:20 Ordered 650 mg PO Q4H PRN Acetaminophen/Aspirin/Caffeine [Excedrin Extra Strength Med 02/10/20 17:24 Ordered ] 1 tab PO Q4H PRN Ciprofloxacin in D5W [Cipro in D5W 400 MG/200 ML] 400 Med 02/10/20 17:30 Ordered mg Premix Bag 1 bag IV Q12HR Ondansetron [Zofran] Med 02/10/20 17:20 Ordered 4 mg IV Q4H PRN Promethazine [Phenergan] Med 02/10/20 17:20 Ordered 25 mg PO Q6H PRN Sodium Chloride 0.9% [Normal Saline] 1,000 ml Med 02/10/20 13:17 Active IV .BOLUS Sodium Chloride 0.9% [Normal Saline] 1,000 ml Med 02/10/20 17:30 Ordered IV ASDIRECTED metroNIDAZOLE/Normal Saline [Flagyl 500 MG in NS 100 ML Med 02/10/20 17:30 O rdered ] 500 mg Premix Bag 1 bag IV Q8H traMADol [Ultram] Med 02/10/20 17:28 Ordered 50 mg PO Q6H PRN Antiembolic Hose [OM.PC] Per Unit Routine Oth 02/10/20 17:21 Ordered Resuscitation Status Routine Resus Stat 02/10/20 17:20 Ordered Medication Orders Acetaminophen (Tylenol) 650 mg PO Q4H PRN PRN Reason: Pain (Mild 1-3)/fever Acetaminophen/Aspirin/Caffeine (Excedrin Extra Strength) 1 tab PO Q4H PRN PRN Reason: Headache Sodium Chloride (Normal Saline) 1,000 mls @ 999 drops/hr IV .BOLUS ONE Stop: 02/11/20 04:17 Last Admin: 02/10/20 13:40 Dose: 999 drops/hr Documented by: MAK Sodium Chloride (Normal Saline) 1,000 mls @ 125 mls/hr IV ASDIRECTED [facility] Ciprofloxacin/Dextrose 400 mg/ (Premix) 200 mls @ 200 mls/hr IV Q12HR ADRIANNE Metronidazole 500 mg/ Premix 100 mls @ 100 mls/hr IV Q8H ADRIANNE Ondansetron HCl (Zofran) 4 mg IV Q4H PRN PRN Reason: Nausea/Vomiting Promethazine HCl (Phenergan) 25 mg PO Q6H PRN PRN Reason: nausea, able to take PO Tramadol HCl (Ultram) 50 mg PO Q6H PRN PRN Reason: Pain (moderate 4-6) Assessment/Plan Comment:: 1. Admit for acute diverticulitis, UTI, atrophic left kidney. 2. Diverticulitis/UTI: PCN allergy so will do Ciprofloxacin 400 mg IV q12h, metronidazole 500 mg IV q8h. Repeat CBC tomorrow. Urine culture pending. 3. Diet: clears. 4. IVF NS at 125 ml/hr. 5. Atrophic left kidney, will verify baseline with her [facility] records, repeat BMP tomorrow. 6. Pain: Excedrin Migraine 1 tab q4h as needed headache, Tylenol 650 mg q4h as needed pain/fever, not to exceed 3 g/day; tramadol 50 mg po q8h as needed pain. Allergy to morphine: rash & itching. Had headache, felt loopy with Dilaudid she got in the ER. 7. Activity: up ad susan. 8. DVT prophylaxis: Ambulate, TEDs BLE. 9. FULL CODE. 10. Adjust treatments as necessary. - Mortality Measure Prognosis:: Good
[2020-02-10] MEDS ORDERED: diphenhydrAMINE 50 MG/ML SDV IVPUSH ONE (17:39)
[2020-02-10] MEDS: traMADol 50 MG Tab PO PRN (17:44)
[2020-02-10] MEDS: Acetaminophen/Aspirin/Caffeine 250-250-65 MG Tab PO PRN (18:05)
--- NOTE | 2020-02-10 18:18 | CT ---
INDICATION: Abdominal pain. CT ABDOMEN AND PELVIS WITH ORAL CONTRAST ONLY: Spiral 2.5 mm axial sections were obtained through the abdomen and pelvis with oral contrast only, with sagittal and coronal reconstructions 02/10/20 and compared with 07/23/19. Total exam DLP was 1584.79 mGy-cm. The lower lung ayala and pleural spaces visualized suggested minimal infiltrate in the medial right lower lobe which was present to a slightly lesser degree on the previous study and may be fibrotic in nature. No consolidating pneumonia or effusion was seen. The heart is normal in size. No pericardial effusion was seen. The liver is relatively is relatively low in density suggesting fatty liver. The gallbladder is absent compatible with history of its removal with clips in the gallbladder bed. The right adrenal gland and right kidney were relatively unremarkable. A normal spleen is absent with what appear to be multiple splenules present in the left upper quadrant posteriorly at the splenic bed. There is also a very tiny appearing perhaps deformed left renal mass of questionable functionality. The pancreas appeared to be relatively foreshortened, but was otherwise unremarkable. No biliary tree dilatation was seen. No definite retroperitoneal mass was seen. Retroperitoneal lymphadenopathy is mild and nonspecific similar to previous study. Diverticulosis coli is noted. In the right upper quadrant there is pericolonic fat stranding and question of some thickening of the wall raising question of proximal transverse - hepatic flexure diverticulitis. This should be correlated clinically. Otherwise, diverticulosis coli is present without evidence of diverticulitis. A previous area of diverticulitis in the sigmoid colon apparently has resolved. The appendix is absent compatible with history of its removal. The uterus is absent compatible with history of its removal. Multiple phleboliths are noted in the pelvis. Urinary bladder was unremarkable. No abdominal herniations were identified. The oral contrast was localized to the stomach. The stomach was not grossly distended. However, after 90 minutes confined to the stomach one would have to consider the possibility of a moderate degree of gastric outlet obstruction, or possibly hypotonic stomach, possibly on the basis of paralytic ileus in a patient with diverticulitis and localized peritonitis. No definite abscess formation or free air was seen in the area of probable diverticulitis at the hepatic flexure - proximal transverse colon. Otherwise, no definite bowel obstruction was identified. IMPRESSION: 1. Hepatic flexure - proximal transverse colon diverticulitis with generalized diverticulosis, but no other site of diverticulitis. 2. Barium meal was confined to the stomach raising question of either hypotonicity or gastric outlet obstruction. 3. Atrophic appearing left kidney may be developmental abnormality. 4. Only minimal splenic tissue suggested which also may be on the basis of a congenital anomaly. 5. Post appendectomy, cholecystectomy, hysterectomy, and oophorectomy. 6. Fatty liver. Report was called to Dr. Stewart at 1548 hours. [facility]
[2020-02-10] MEDS: metroNIDAZOLE/Normal Saline 500 MG in Premix Bag 1 BAG IV SCH (18:30)
[2020-02-11] MEDS: traMADol 50 MG Tab PO PRN ×3 (00:03→22:53)
[2020-02-11] MEDS: Ondansetron 4 MG/2 ML SDV IV PRN ×4 (00:07→18:00)
[2020-02-11] MEDS: metroNIDAZOLE/Normal Saline 500 MG in Premix Bag 1 BAG IV SCH ×3 (02:03→18:00)
[2020-02-11] MEDS: Acetaminophen/Aspirin/Caffeine 250-250-65 MG Tab PO PRN (04:18)
[2020-02-11] MEDS: Sodium Chloride 0.9% 1,000 ML IV SCH ×2 (04:23→14:30)
[2020-02-11] MEDS: Ciprofloxacin in D5W 400 MG in Premix Bag 1 BAG IV SCH ×4 (05:32→16:47)
--- NOTE | 2020-02-11 11:00 | PCM.PN ---
- General Info Date of Service: 02/11/20 Subjective Update: Gissel is still feeling rough but no nausea this morning, did fine with clear liquids and would like something more solid to eat, she's hungry. Abdominal pain is better, urinating well. Headache is better. Had some itching with Ciprofloxacin last night but resolved with Benadryl. Had second dose this morning and she didn't have any itching with it. - Patient Data Vitals - Most Recent: Last Vital Signs Temp 97.6 F 02/11/20 00:00 Pulse 74 02/11/20 00:00 Resp 16 02/11/20 00:00 BP 101/70 02/11/20 00:00 Pulse Ox 96 02/11/20 00:00 Weight - Most Recent: 217 lb 6 oz I&O - Last 24 Hours: Intake & Output 02/10/20 02/11/20 02/11/20 22:59 06:59 14:59 Intake Total 660 1600 Output Total 500 Balance 160 1600 Lab Results Last 24 Hours: Laboratory Results - last 24 hr 02/10/20 02/10/20 02/10/20 Range/Units 13:30 13:30 13:30 WBC 17.0 H (4.5-12.0) X10-3/uL RBC 5.38 H (3.23-5.20) x10(6)uL Hgb 15.3 (11.5-15.5) g/dL Hct 46.8 (30.0-51.3) % MCV 87.0 (80-96) fL MCH 28.5 (27.7-33.6) pg MCHC 32.8 (32.2-35.4) g/dL RDW 14.3 (11.5-15.5) % Plt Count 251 (125-369) X10(3)uL MPV (7.4-10.4) fL Neut % (Auto) (46-82) % Lymph % (Auto) (13-37) % [place] % (Auto) (4-12) % Eos % (Auto) (1.0-5.0) % Baso % (Auto) (0-2) % Neut # (Auto) (1.6-8.3) # Lymph # (Auto) (0.6-5.0) # [place] # (Auto) (0.0-1.3) # Eos # (Auto) (0.0-0.8) # Baso # (Auto) (0.0-0.2) # Sodium 138 (135-145) mmol/L Potassium 3.8 (3.5-5.3) mmol/L Chloride 102 (100-110) mmol/L Carbon Dioxide 27 (21-32) mmol/L BUN 17 (7-18) mg/dL Creatinine 1.6 H (0.55-1.02) mg/dL Est Cr Clr Drug Dosing TNP Estimated GFR (MDRD) 34 L (>60) BUN/Creatinine Ratio 10.6 (9-20) Glucose 107 (80-116) mg/dL Calcium 9.0 (8.6-10.2) mg/dL Total Bilirubin 0.4 (0.1-1.3) mg/dL AST 31 H D (5-25) IU/L ALT 73 H D (12-36) U/L Alkaline Phosphatase 124 H (56-112) IU/L Total Protein 7.9 (6.0-8.0) g/dL Albumin 3.7 (3.5-5.2) g/dL Globulin 4.2 g/dL Albumin/Globulin Ratio 0.9 Amylase 51 (25-115) U/L Lipase 94 (73-393) U/L Urine Color (YELLOW) Urine Appearance (CLEAR) Urine pH (5.0-6.5) Ur Specific [place] (1.010-1.025) Urine Protein (NEGATIVE) mg/dL Urine Glucose (UA) (NORMAL) mg/dL Urine Ketones (NEGATIVE) mg/dL Urine Occult Blood (NEGATIVE) Urine Nitrite (NEGATIVE) Urine Bilirubin (NEGATIVE) Urine Urobilinogen (NEGATIVE) mg/dL Ur Leukocyte Esterase (NEGATIVE) Urine RBC (0-5) Urine WBC (0-5) Ur Squamous Epith Cells (NS,R,O) Urine Bacteria (NS) 02/10/20 02/11/20 02/11/20 Range/Units 13:35 06:02 06:02 WBC 13.5 H (4.5-12.0) X10-3/uL RBC 4.60 (3.23-5.20) x10(6)uL Hgb 13.2 (11.5-15.5) g/dL Hct 40.0 (30.0-51.3) % MCV 87.0 (80-96) fL MCH 28.7 (27.7-33.6) pg MCHC 33.0 (32.2-35.4) g/dL RDW 14.3 (11.5-15.5) % Plt Count 221 (125-369) X10(3)uL MPV 9.3 (7.4-10.4) fL Neut % (Auto) 60.9 (46-82) % Lymph % (Auto) 26.6 (13-37) % [place] % (Auto) 9.3 (4-12) % Eos % (Auto) 3 (1.0-5.0) % Baso % (Auto) 1 (0-2) % Neut # (Auto) 8.1 (1.6-8.3) # Lymph # (Auto) 3.6 (0.6-5.0) # [place] # (Auto) 1.3 (0.0-1.3) # Eos # (Auto) 0.4 (0.0-0.8) # Baso # (Auto) 0.1 (0.0-0.2) # Sodium 139 (135-145) mmol/L Potassium 4.2 (3.5-5.3) mmol/L Chloride 106 (100-110) mmol/L Carbon Dioxide 27 (21-32) mmol/L BUN 12 (7-18) mg/dL Creatinine 1.2 H (0.55-1.02) mg/dL Est Cr Clr Drug Dosing 44.30 Estimated GFR (MDRD) 48 L (>60) BUN/Creatinine Ratio 10.0 (9-20) Glucose 125 H (80-116) mg/dL Calcium 8.0 L (8.6-10.2) mg/dL Total Bilirubin (0.1-1.3) mg/dL AST (5-25) IU/L ALT (12-36) U/L Alkaline Phosphatase (56-112) IU/L Total Protein (6.0-8.0) g/dL Albumin (3.5-5.2) g/dL Globulin g/dL Albumin/Globulin Ratio Amylase (25-115) U/L Lipase (73-393) U/L Urine Color Yellow (YELLOW) Urine Appearance Cloudy (CLEAR) Urine pH 5.0 (5.0-6.5) Ur Specific [place] 1.025 (1.010-1.025) Urine Protein 30 H (NEGATIVE) mg/dL Urine Glucose (UA) Normal (NORMAL) mg/dL Urine Ketones 15 H (NEGATIVE) mg/dL Urine Occult Blood Negative (NEGATIVE) Urine Nitrite Positive H (NEGATIVE) Urine Bilirubin Small H (NEGATIVE) Urine Urobilinogen 1 H (NEGATIVE) mg/dL Ur Leukocyte Esterase Large H (NEGATIVE) Urine RBC 0-5 (0-5) Urine WBC 10-20 H (0-5) Ur Squamous Epith Cells Many H (NS,R,O) Urine Bacteria Many H (NS) Med Orders - Current: Current Medications Acetaminophen (Tylenol) 650 mg PO Q4H PRN PRN Reason: Pain (Mild 1-3)/fever Acetaminophen/Aspirin/Caffeine (Excedrin Extra Strength) 1 tab PO Q4H PRN PRN Reason: Headache Last Admin: 02/11/20 04:18 Dose: 1 tab Documented by: Sodium Chloride (Normal Saline) 1,000 mls @ 125 mls/hr IV ASDIRECTED [facility] Last Admin: 02/11/20 04:23 Dose: 125 mls/hr Documented by: Metronidazole 500 mg/ Premix 100 mls @ 100 mls/hr IV Q8H [facility] Last Admin: 02/11/20 09:50 Dose: 100 mls/hr Documented by: Ciprofloxacin/Dextrose 400 mg/ (Premix) 200 mls @ 200 mls/hr IV Q12H [facility] Lisinopril (Prinivil) 20 mg PO DAILY [facility] Ondansetron HCl (Zofran) 4 mg IV Q4H PRN PRN Reason: Nausea/Vomiting Last Admin: 02/11/20 08:15 Dose: 4 mg Documented by: Promethazine HCl (Phenergan) 25 mg PO Q6H PRN PRN Reason: nausea, able to take PO Sodium Chloride (Saline Flush) 10 ml FLUSH ASDIRECTED PRN PRN Reason: flush med Last Admin: 02/10/20 17:30 Dose: 10 ml Documented by: Tramadol HCl (Ultram) 50 mg PO Q6H PRN PRN Reason: Pain (moderate 4-6) Last Admin: 02/11/20 00:03 Dose: 50 mg Documented by: Discontinued Medications Hydrocodone Bitart/Acetaminophen ([place] 325-5 Mg) 1 tab PO Q4H PRN PRN Reason: Pain (moderate 4-6) Diphenhydramine HCl (Benadryl) 25 mg IVPUSH ONETIME ONE Stop: 02/10/20 17:40 Last Admin: 02/10/20 17:51 Dose: 25 mg Documented by: Hydromorphone HCl (Dilaudid) 1 mg IVPUSH ONETIME ONE Stop: 02/10/20 13:18 Last Admin: 02/10/20 13:49 Dose: 1 mg Documented by: Sodium Chloride (Normal Saline) 1,000 mls @ 999 drops/hr IV .BOLUS ONE Stop: 02/11/20 04:17 Last Admin: 02/10/20 13:40 Dose: 999 drops/hr Documented by: Metronidazole 500 mg/ Premix 100 mls @ 100 mls/hr IV ONETIME ONE Stop: 02/10/20 17:09 Ciprofloxacin/Dextrose 400 mg/ (Premix) 200 mls @ 200 mls/hr IV ONETIME ONE Stop: 02/10/20 17:09 Ciprofloxacin/Dextrose 400 mg/ (Premix) 200 mls @ 200 mls/hr IV Q12H [facility] Last Admin: 02/11/20 05:32 Dose: 200 mls/hr Documented by: Ondansetron HCl (Zofran) 4 mg IVPUSH ONETIME ONE Stop: 02/10/20 13:18 Last Admin: 02/10/20 13:46 Dose: 4 mg Documented by: - Exam General: Alert, Oriented, Cooperative, No Acute Distress Lungs: Clear to Auscultation, Normal Respiratory Effort Cardiovascular: Regular Rate, Regular Rhythm GI/Abdominal Exam: Normal Bowel Sounds, Soft, No Distention, Tender (diffuse) Extremities: No Pedal Edema Sepsis Event Note - Evaluation Sepsis Screening Result: No Definite Risk - Focused Exam Vital Signs: Vital Signs Temp Pulse Resp BP Pulse Ox 02/11/20 00:00 97.6 F 74 16 101/70 96 Date Exam was Performed: 02/11/20 Time Exam was Performed: 10:54 - Problem List & Annotations (1) Acute diverticulitis SNOMED Code(s): 626198806 Code(s): K57.92 - DVTRCLI OF INTEST, PART UNSP, W/O PERF OR ABSCESS W/O BLEED Status: Acute Current Visit: Yes (2) UTI (urinary tract infection) SNOMED Code(s): 50297388 Code(s): N39.0 - URINARY TRACT INFECTION, SITE NOT SPECIFIED Status: Acute Current Visit: Yes (3) Dehydration SNOMED Code(s): 72644508 Code(s): E86.0 - DEHYDRATION Status: Acute Current Visit: Yes (4) Acute kidney injury SNOMED Code(s): 47322055, 60537277 Code(s): N17.9 - ACUTE KIDNEY FAILURE, UNSPECIFIED Status: Acute Current Visit: Yes (5) Atrophy of left kidney SNOMED Code(s): 409899041 Code(s): N26.1 - ATROPHY OF KIDNEY (TERMINAL) Status: Chronic Current Visit: Yes (6) Hypertension SNOMED Code(s): 52894749 Code(s): I10 - ESSENTIAL (PRIMARY) HYPERTENSION Status: Acute Current Visit: Yes Annotation/Comment:: new onset, started on Lisinopril but only took on 02/08, had dry cough with it. (7) Hyperlipidemia SNOMED Code(s): 44785065 Code(s): E78.5 - HYPERLIPIDEMIA, UNSPECIFIED Status: Acute Current Visit: Yes (8) Migraine SNOMED Code(s): 49297200 Code(s): G43.909 - MIGRAINE, UNSP, NOT INTRACTABLE, WITHOUT STATUS MIGRAINOSUS Status: Chronic Current Visit: Yes - Problem List Review Problem List Initiated/Reviewed/Updated: Yes - My Orders Last 24 Hours: My Active Orders 02/10/20 13:45 CULTURE URINE [RM] Routine 02/10/20 17:20 Patient Status [ADT] Routine Antiembolic Devices [RC] .Routine Oxygen Therapy [RC] PRN Up ad Shonda [RC] ASDIRECTED Vital Signs [RC] QSHIFT Acetaminophen [Tylenol] 650 mg PO Q4H PRN Ondansetron [Zofran] 4 mg IV Q4H PRN Promethazine [Phenergan] 25 mg PO Q6H PRN Resuscitation Status Routine 02/10/20 17:21 Ambulate [RC] PER UNIT ROUTINE Antiembolic Hose [OM.PC] Per Unit Routine 02/10/20 17:24 Acetaminophen/Aspirin/Caffeine [Excedrin Extra Strength] 1 tab PO Q4H PRN 02/10/20 17:28 traMADol [Ultram] 50 mg PO Q6H PRN 02/10/20 17:30 Sodium Chloride 0.9% [Normal Saline] 1,000 ml IV ASDIRECTED Sodium Chloride 0.9% [Saline Flush] 10 ml FLUSH ASDIRECTED PRN 02/10/20 18:00 metroNIDAZOLE/Normal Saline [Flagyl 500 MG in NS 100 ML] 500 mg Premix Bag 1 bag IV Q8H 02/11/20 Lunch Soft Diet [DIET] 02/11/20 17:00 Ciprofloxacin in D5W [Cipro in D5W 400 MG/200 ML] 400 mg Premix Bag 1 bag IV Q12H 02/12/20 09:00 lisinopriL [Prinivil] 20 mg PO DAILY - Plan Plan:: 1. Diverticulitis/UTI: Ciprofloxacin 400 mg IV q12h, metronidazole 500 mg IV q8h, day 2. WBC down to 13.5. Repeat CBC tomorrow. Urine culture pending. 2. Diet: advance to soft then as tolerated. 4. IVF NS at 125 ml/hr. 5. Atrophic left kidney, with acute kidney injury, baseline creatinine on 02/06 was 1.01, improved from 1.6 to 1.2 today. Repeat BMP tomorrow. 6. Pain: Excedrin Migraine 1 tab q4h as needed headache, Tylenol 650 mg q4h as needed pain/fever, not to exceed 3 g/day; tramadol 50 mg po q8h as needed pain. Allergy to morphine: rash & itching. Had headache, felt loopy with Dilaudid she got in the ER. 7. Adjust treatments as necessary.
[2020-02-11] MEDS ORDERED: diphenhydrAMINE 50 MG/ML SDV IVPUSH PRN (16:07)
[2020-02-12] MEDS: Sodium Chloride 0.9% 1,000 ML IV SCH (01:10)
[2020-02-12] MEDS: metroNIDAZOLE/Normal Saline 500 MG in Premix Bag 1 BAG IV SCH ×2 (01:40→09:07)
[2020-02-12] MEDS: Ciprofloxacin in D5W 400 MG in Premix Bag 1 BAG IV SCH ×2 (05:24)
[2020-02-12] MEDS: Acetaminophen/Aspirin/Caffeine 250-250-65 MG Tab PO PRN (06:06)
[2020-02-12] MEDS: Promethazine 25 MG Tab PO PRN (07:36)
[2020-02-12] MEDS: Lisinopril 20 MG Tab PO SCH (09:09)
--- NOTE | 2020-02-12 09:32 | PCM.PN ---
- General Info Date of Service: 02/12/20 Subjective Update: Feeling better today, had regular diet this morning that went well. Pain is controlled. Nausea last night and this morning, had Zofran last night and Phenergan this morning, no nausea after her breakfast. A little diarrhea yesterday. Had episode of chest pain this morning just before 8am, has resolved now. EKG showed NSR, no ST-T wave changes, no Q waves. Troponin negative. Functional Status: Reports: Pain Controlled, Tolerating Diet, Urinating - Patient Data Vitals - Most Recent: Last Vital Signs Temp 98.1 F 02/12/20 07:38 Pulse 82 02/12/20 07:38 Resp 18 02/12/20 07:38 BP 137/95 H 02/12/20 09:09 Pulse Ox 95 02/12/20 07:38 Weight - Most Recent: 217 lb 6 oz I&O - Last 24 Hours: Intake & Output 02/11/20 02/12/20 02/12/20 22:59 06:59 14:59 Intake Total 1175 975 Output Total 700 Balance 475 975 Lab Results Last 24 Hours: Laboratory Results - last 24 hr 02/12/20 02/12/20 02/12/20 Range/Units 06:25 06:25 06:25 WBC 12.1 H (4.5-12.0) X10-3/uL RBC 4.73 (3.23-5.20) x10(6)uL Hgb 13.2 (11.5-15.5) g/dL Hct 41.6 (30.0-51.3) % MCV 87.9 (80-96) fL MCH 27.9 (27.7-33.6) pg MCHC 31.7 L (32.2-35.4) g/dL RDW 14.3 (11.5-15.5) % Plt Count 258 (125-369) X10(3)uL MPV 9.4 (7.4-10.4) fL Neut % (Auto) 50.6 (46-82) % Lymph % (Auto) 35.0 (13-37) % [place] % (Auto) 10.6 (4-12) % Eos % (Auto) 3 (1.0-5.0) % Baso % (Auto) 1 (0-2) % Neut # (Auto) 6.1 (1.6-8.3) # Lymph # (Auto) 4.2 (0.6-5.0) # [place] # (Auto) 1.3 (0.0-1.3) # Eos # (Auto) 0.4 (0.0-0.8) # Baso # (Auto) 0.1 (0.0-0.2) # Sodium 139 (135-145) mmol/L Potassium 3.6 (3.5-5.3) mmol/L Chloride 104 (100-110) mmol/L Carbon Dioxide 30 (21-32) mmol/L BUN 8 (7-18) mg/dL Creatinine 1.2 H (0.55-1.02) mg/dL Est Cr Clr Drug Dosing 44.30 mL/min Estimated GFR (MDRD) 48 L (>60) BUN/Creatinine Ratio 6.7 L (9-20) Glucose 139 H (80-116) mg/dL Calcium 8.5 L (8.6-10.2) mg/dL Troponin I 6.8 (4.0-60.3) pg/mL Alex Results Last 24 Hours: Microbiology 02/10/20 13:45 Urine Culture - Preliminary Urine, Clean Catch MIXED POSITIVE ZINA DAY 1 Med Orders - Current: Current Medications Acetaminophen (Tylenol) 650 mg PO Q4H PRN PRN Reason: Pain (Mild 1-3)/fever Acetaminophen/Aspirin/Caffeine (Excedrin Extra Strength) 1 tab PO Q4H PRN PRN Reason: Headache Last Admin: 02/12/20 06:06 Dose: 1 tab Documented by: Diphenhydramine HCl (Benadryl) 25 mg IVPUSH Q6H PRN PRN Reason: ITCHING Sodium Chloride (Normal Saline) 1,000 mls @ 75 mls/hr IV ASDIRECTED [facility] Last Admin: 02/12/20 01:10 Dose: 125 mls/hr Documented by: Metronidazole 500 mg/ Premix 100 mls @ 100 mls/hr IV Q8H [facility] Last Admin: 02/12/20 09:07 Dose: 100 mls/hr Documented by: Ciprofloxacin/Dextrose 400 mg/ (Premix) 200 mls @ 200 mls/hr IV Q12H [facility] Last Admin: 02/12/20 05:24 Dose: 200 mls/hr Documented by: Lisinopril (Prinivil) 20 mg PO DAILY [facility] Last Admin: 02/12/20 09:09 Dose: 20 mg Documented by: Ondansetron HCl (Zofran) 4 mg IV Q4H PRN PRN Reason: Nausea/Vomiting Last Admin: 02/11/20 18:00 Dose: 4 mg Documented by: Promethazine HCl (Phenergan) 25 mg PO Q6H PRN PRN Reason: nausea, able to take PO Last Admin: 02/12/20 07:36 Dose: 25 mg Documented by: Sodium Chloride (Saline Flush) 10 ml FLUSH ASDIRECTED PRN PRN Reason: flush med Last Admin: 02/10/20 17:30 Dose: 10 ml Documented by: Tramadol HCl (Ultram) 50 mg PO Q6H PRN PRN Reason: Pain (moderate 4-6) Last Admin: 02/11/20 22:53 Dose: 50 mg Documented by: Discontinued Medications Hydrocodone Bitart/Acetaminophen ([place] 325-5 Mg) 1 tab PO Q4H PRN PRN Reason: Pain (moderate 4-6) Diphenhydramine HCl (Benadryl) 25 mg IVPUSH ONETIME ONE Stop: 02/10/20 17:40 Last Admin: 02/10/20 17:51 Dose: 25 mg Documented by: Hydromorphone HCl (Dilaudid) 1 mg IVPUSH ONETIME ONE Stop: 02/10/20 13:18 Last Admin: 02/10/20 13:49 Dose: 1 mg Documented by: Sodium Chloride (Normal Saline) 1,000 mls @ 999 drops/hr IV .BOLUS ONE Stop: 02/11/20 04:17 Last Admin: 02/10/20 13:40 Dose: 999 drops/hr Documented by: Metronidazole 500 mg/ Premix 100 mls @ 100 mls/hr IV ONETIME ONE Stop: 02/10/20 17:09 Last Admin: 02/11/20 14:38 Dose: Not Given Documented by: Ciprofloxacin/Dextrose 400 mg/ (Premix) 200 mls @ 200 mls/hr IV ONETIME ONE Stop: 02/10/20 17:09 Last Admin: 02/11/20 14:38 Dose: Not Given Documented by: Ciprofloxacin/Dextrose 400 mg/ (Premix) 200 mls @ 200 mls/hr IV Q12H [facility] Last Admin: 02/11/20 05:32 Dose: 200 mls/hr Documented by: Ondansetron HCl (Zofran) 4 mg IVPUSH ONETIME ONE Stop: 02/10/20 13:18 Last Admin: 02/10/20 13:46 Dose: 4 mg Documented by: - Exam General: Alert, Oriented, Cooperative, No Acute Distress Lungs: Clear to Auscultation, Normal Respiratory Effort Cardiovascular: Regular Rate, Regular Rhythm GI/Abdominal Exam: Normal Bowel Sounds, Soft, No Distention, Guarding, Tender (diffuse, unchanged). No: Rigid, Rebound Sepsis Event Note - Evaluation Sepsis Screening Result: No Definite Risk - Focused Exam Vital Signs: Vital Signs Temp Pulse Resp BP BP Pulse Ox 02/12/20 09:09 137/95 H 02/12/20 07:38 98.1 F 82 18 137/95 H 95 02/12/20 00:00 98.8 F 82 18 126/84 95 Date Exam was Performed: 02/12/20 Time Exam was Performed: 09:26 - Problem List & Annotations (1) Acute diverticulitis SNOMED Code(s): 758358082 Code(s): K57.92 - DVTRCLI OF INTEST, PART UNSP, W/O PERF OR ABSCESS W/O BLEED Status: Acute Current Visit: Yes Annotation/Comment:: Cipro & Metronidazole, day 3 start next dose. If she tolerates her regular diet, will switch to orals and make sure she can tolerate them. (2) UTI (urinary tract infection) SNOMED Code(s): 93669336 Code(s): N39.0 - URINARY TRACT INFECTION, SITE NOT SPECIFIED Status: Ruled- out Current Visit: Yes Annotation/Comment:: Mixed zina so UTI ruled out. (3) Dehydration SNOMED Code(s): 62914920 Code(s): E86.0 - DEHYDRATION Status: Acute Current Visit: Yes Annotation/Comment:: Improving, Cr stable at 1.2, not drinking much. Decreased IVF to 75 ml/hr, encourage oral intake. Repeat labs tomorrow. (4) Acute kidney injury SNOMED Code(s): 48106576, 81546037 Code(s): N17.9 - ACUTE KIDNEY FAILURE, UNSPECIFIED Status: Acute Current Visit: Yes Annotation/Comment:: Baseline 1.01, Cr 1.2 stable from yesterday. (5) Atrophy of left kidney SNOMED Code(s): 781498075 Code(s): N26.1 - ATROPHY OF KIDNEY (TERMINAL) Status: Chronic Current Visit: Yes (6) Hypertension SNOMED Code(s): 70575105 Code(s): I10 - ESSENTIAL (PRIMARY) HYPERTENSION Status: Acute Current Visit: Yes Annotation/Comment:: New onset, picked up her Lisinopril but had not taken yet. Started here. (7) Hyperlipidemia SNOMED Code(s): 28169151 Code(s): E78.5 - HYPERLIPIDEMIA, UNSPECIFIED Status: Acute Current Visit: Yes (8) Migraine SNOMED Code(s): 20090168 Code(s): G43.909 - MIGRAINE, UNSP, NOT INTRACTABLE, WITHOUT STATUS MIGRAINOSUS Status: Chronic Current Visit: Yes - Problem List Review Problem List Initiated/Reviewed/Updated: Yes - My Orders Last 24 Hours: My Active Orders 02/11/20 16:07 diphenhydrAMINE [Benadryl] 25 mg IVPUSH Q6H PRN 02/11/20 Dinner Regular Diet [DIET] 02/11/20 17:00 Ciprofloxacin in D5W [Cipro in D5W 400 MG/200 ML] 400 mg Premix Bag 1 bag IV Q12H 02/12/20 07:49 EKG Documentation Completion [RC] ASDIRECTED EKG 12 Lead [EK] Routine 02/12/20 09:00 lisinopriL [Prinivil] 20 mg PO DAILY - Plan Plan:: 1. Diverticulitis: Ciprofloxacin 400 mg IV q12h, metronidazole 500 mg IV q8h, day 3. WBC down to 12.1. Repeat CBC tomorrow. Urine culture mixed zina, false positive, UTI ruled out. 2. Diet: advance to Regular. 3. IVF NS at 75 ml/hr. Encourage fluid intake. 4. Ambulate in halls and up in chair tid. 5. Atrophic left kidney, with acute kidney injury, baseline creatinine on 02/06 was 1.01, improved from 1.6 to 1.2 today & yesterday. Repeat BMP tomorrow. 6. Pain: Excedrin Migraine 1 tab q4h as needed headache, Tylenol 650 mg q4h as needed pain/fever, not to exceed 3 g/day; tramadol 50 mg po q8h as needed pain. Allergy to morphine: rash & itching. Had headache, felt loopy with Dilaudid she got in the ER. 7. Adjust treatments as necessary.
[2020-02-12] MEDS: Ciprofloxacin 500 MG Tab PO SCH (17:00)
[2020-02-12] MEDS: metroNIDAZOLE 500 MG Tab PO SCH (17:00)
[2020-02-12] MEDS ORDERED: Aluminum Hydroxide/Magnesium Hydroxide Susp 30 ML Cup PO PRN (21:45)
[2020-02-13] MEDS: metroNIDAZOLE 500 MG Tab PO SCH ×2 (02:16→09:41)
[2020-02-13] MEDS: Ciprofloxacin 500 MG Tab PO SCH (05:29)
[2020-02-13] MEDS: Acetaminophen/Aspirin/Caffeine 250-250-65 MG Tab PO PRN (07:31)
[2020-02-13] MEDS: traMADol 50 MG Tab PO PRN (07:33)
[2020-02-13] MEDS: Promethazine 25 MG Tab PO PRN (09:41)
[2020-02-13] MEDS: Lisinopril 20 MG Tab PO SCH (09:41)
[2020-02-13] MEDS ORDERED: metroNIDAZOLE 500 MG Tab PO ONE (11:57)
[2020-02-13] MEDS ORDERED: traMADol 50 MG Tab PO ONE (12:54)
[2020-02-13] MEDS ORDERED: Ondansetron 4 MG Tab.DIS PO ONE (12:54)
[2020-02-13] MEDS ORDERED: Ciprofloxacin 500 MG Tab PO ONE (12:54)
--- NOTE | 2020-02-13 14:08 | PCM.DCSUM1 ---
Discharge Summary - Hospital Course HPI Initial Comments: Gissel presented to ER for abdominal pain, nausea, diarrhea after being seen in [facility] today, has been having symptoms since Feb 04. Initially thought it was her kidney, as she noticed blood in her urine, then she had diffuse belly pain, nausea but no vomiting. She only has the one on the right, just a nub on the left, had done a 24 hr urine yesterday which she brought into the clinic today. No fevers, chills, runny nose, sore throat, shortness of breath, chest pain, dysuria or frequency. No rash, easily bruising or bleeding. No seasonal allergies or immunologic conditions. History of cholecystectomy, appendectomy and hysterectomy with oophorectomy. 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 Diagnosis: Stroke: No - Discharge Data Discharge Date: 02/13/20 Discharge Disposition: Home, Self-Care 01 Condition: Good - Referral to Home Health Primary Care Physician: Aguilar Rosa M.D. - Discharge Diagnosis/Problem(s) (1) Acute diverticulitis SNOMED Code(s): 126822742 ICD Code: K57.92 - DVTRCLI OF INTEST, PART UNSP, W/O PERF OR ABSCESS W/O BLEED Status: Acute Problem Details: Cipro & Metronidazole, day 3 completed, will go home with 7 more days of antibiotics to complete 10 day course. Had some nausea & headache with meds but no vomiting. Would like to go home. WBC normal today at 10.0. High fiber diet. (2) UTI (urinary tract infection) SNOMED Code(s): 82779658 ICD Code: N39.0 - URINARY TRACT INFECTION, SITE NOT SPECIFIED Status: Ruled-out Problem Details: Mixed zina so UTI ruled out. (3) Dehydration SNOMED Code(s): 52160646 ICD Code: E86.0 - DEHYDRATION Status: Acute Problem Details: Cr stable at 1.2, increased her oral intake and saline locked yesterday. (4) Acute kidney injury SNOMED Code(s): 05063238, 92093494 ICD Code: N17.9 - ACUTE KIDNEY FAILURE, UNSPECIFIED Status: Acute Problem Details: Baseline 1.01, Cr 1.2 stable from yesterday. (5) Atrophy of left kidney SNOMED Code(s): 544638982 ICD Code: N26.1 - ATROPHY OF KIDNEY (TERMINAL) Status: Chronic (6) Hypertension SNOMED Code(s): 40101073 ICD Code: I10 - ESSENTIAL (PRIMARY) HYPERTENSION Status: Acute Problem Details: Recent diagnosis in clinic, well controlled on Lisinopril. Qualifiers: Hypertension type: essential hypertension Qualified Code(s): I10 - Essential (primary) hypertension (7) Hyperlipidemia SNOMED Code(s): 85079797 ICD Code: E78.5 - HYPERLIPIDEMIA, UNSPECIFIED Status: Acute (8) Migraine SNOMED Code(s): 97549703 ICD Code: G43.909 - MIGRAINE, UNSP, NOT INTRACTABLE, WITHOUT STATUS MIGRAINOSUS Status: Chronic - Patient Summary/Data Hospital Course: Admitted for diverticulitis found on CT abdomen/pelvis, elevated WBC at 17.0, Cr to 1.6, baseline 1.01 on 02/06. Started on Ciprofloxacin and Metronidazole once she reached the floor. She had some itching at IV site with Ciprofloxacin, [place] 25 mg IV given, she had no further itching with IV infusion of either antibiotic during her hospitalization. Received 2 full days of IV ciprofloxacin & metronidazole, switched to orals yesterday evening, received 3rd full day of dosing prior to discharge, had headache and some nausea with orals but no vomiting, tolerating her diet and pain controlled. Her creatinine improved to 1.2 with IVF, saline locked and Creatinine was stable at 1.2. No further blood in her urine. Urine culture grew mixed zina so UTI was ruled out. Advised to be on high fiber diet. Blood pressures have been well controlled on Lisinopril 20 mg daily. Would like to go home. Will have her follow up at end of week/beginning of next week with her PCP. 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 - Patient Instructions Diet: Regular Diet as Tolerated, Low Sodium, Drink 8-10+ Glasses/Day Diet, Other: High fiber diet Activity: As Tolerated Driving: Do Not Drive Showering/Bathing: May Shower Notify Provider of: Fever, Increased Pain, Nausea and/or Vomiting Other/Special Instructions: Follow up with Dr Rosa in 1 week to recheck your kidney function and go over your recent 24 hour urine results, make sure diverticulitis is resolved. - Discharge Plan *PRESCRIPTION DRUG MONITORING PROGRAM REVIEWED*: Yes *COPY OF PRESCRIPTION DRUG MONITORING REPORT IN PATIENT DRAKE: Not Applicable Prescriptions/Med Rec: Ciprofloxacin [Ciprofloxacin HCl] 500 mg PO Q12H 7 Days #14 tablet metroNIDAZOLE [Flagyl] 500 mg PO TIDMEALS 7 Days #21 tablet Ondansetron [Ondansetron ODT] 4 mg PO Q6H PRN 3 Days #12 tab.rapdis PRN Reason: Nausea/Vomiting traMADol [Ultram] 50 mg PO Q6H PRN 3 Days #12 tablet PRN Reason: Pain (Moderate 4-6) Home Medications: Home Meds Acetaminophen/Caffeine [Excedrin Tension Headache] 1 tab PO Q4H PRN 02/11/20 [History] lisinopriL [Lisinopril] 20 mg PO DAILY 02/11/20 [History] Ciprofloxacin [Ciprofloxacin HCl] 500 mg PO Q12H 7 Days #14 tablet 02/13/20 [Rx] Ondansetron [Ondansetron ODT] 4 mg PO Q6H PRN 3 Days #12 tab.rapdis 02/13/20 [Rx] metroNIDAZOLE [Flagyl] 500 mg PO TIDMEALS 7 Days #21 tablet 02/13/20 [Rx] traMADol [Ultram] 50 mg PO Q6H PRN 3 Days #12 tablet 02/13/20 [Rx] Oxygen Therapy Mode: Room Air Patient Handouts: High-Fiber Diet, Diverticulitis, [id number], Nausea and Vomiting, Adult, [id number], Steps to Quit Smoking Forms: ED Department Discharge Referrals: Aguilar Rosa MD [Physician] - - Discharge Summary/Plan Comment DC Time >30 min.: No - General Info Date of Service: 02/13/20 Subjective Update: She having some nausea still and headache but has not vomited since switching to orals, would like to go home. No fevers, tolerating regular diet. Abdominal pain improving. Did not require any Tramadol yesterday but did take one this morning with Tylenol for her headache. - Patient Data Vitals - Most Recent: Last Vital Signs Temp 98.3 F 02/13/20 07:41 Pulse 77 02/13/20 07:41 Resp 18 02/13/20 07:41 BP 118/75 02/13/20 09:41 Pulse Ox 98 02/13/20 07:41 Weight - Most Recent: 217 lb 6 oz Lab Results - Last 24 hrs: Laboratory Results - last 24 hr 02/13/20 02/13/20 Range/Units 06:15 06:15 WBC 10.0 (4.5-12.0) X10-3/uL RBC 4.94 (3.23-5.20) x10(6)uL Hgb 13.8 (11.5-15.5) g/dL Hct 43.3 (30.0-51.3) % MCV 87.5 (80-96) fL MCH 27.8 (27.7-33.6) pg MCHC 31.8 L (32.2-35.4) g/dL RDW 14.3 (11.5-15.5) % Plt Count 283 (125-369) X10(3)uL MPV 9.1 (7.4-10.4) fL Neut % (Auto) 46.6 (46-82) % Lymph % (Auto) 38.2 H (13-37) % [place] % (Auto) 10.5 (4-12) % Eos % (Auto) 4 (1.0-5.0) % Baso % (Auto) 1 (0-2) % Neut # (Auto) 4.6 (1.6-8.3) # Lymph # (Auto) 3.8 (0.6-5.0) # [place] # (Auto) 1.1 (0.0-1.3) # Eos # (Auto) 0.4 (0.0-0.8) # Baso # (Auto) 0.1 (0.0-0.2) # Sodium 143 (135-145) mmol/L Potassium 4.2 (3.5-5.3) mmol/L Chloride 106 (100-110) mmol/L Carbon Dioxide 28 (21-32) mmol/L BUN 10 (7-18) mg/dL Creatinine 1.2 H (0.55-1.02) mg/dL Est Cr Clr Drug Dosing 44.30 mL/min Estimated GFR (MDRD) 48 L (>60) BUN/Creatinine Ratio 8.3 L (9-20) Glucose 115 (80-116) mg/dL Calcium 8.6 (8.6-10.2) mg/dL MONICA Results - Last 24 hrs: Microbiology 02/10/20 13:45 Urine Culture - Final Urine, Clean Catch MIXED POSITIVE ZINA DAY 2 Med Orders - Current: Current Medications Discontinued Medications Acetaminophen (Tylenol) 650 mg PO Q4H PRN PRN Reason: Pain (Mild 1-3)/fever Acetaminophen/Aspirin/Caffeine (Excedrin Extra Strength) 1 tab PO Q4H PRN PRN Reason: Headache Last Admin: 02/13/20 07:31 Dose: 1 tab Documented by: Hydrocodone Bitart/Acetaminophen ([place] 325-5 Mg) 1 tab PO Q4H PRN PRN Reason: Pain (moderate 4-6) Al Hydroxide/Mg Hydroxide (Mag-Al Susp) 30 ml PO TID PRN PRN Reason: Indigestion Last Admin: 02/12/20 22:01 Dose: 30 ml Documented by: Ciprofloxacin (Ciprofloxacin Hcl) 500 mg PO Q12H ADRIANNE Last Admin: 02/13/20 05:29 Dose: 500 mg Documented by: Diphenhydramine HCl (Benadryl) 25 mg IVPUSH ONETIME ONE Stop: 02/10/20 17:40 Last Admin: 02/10/20 17:51 Dose: 25 mg Documented by: Diphenhydramine HCl (Benadryl) 25 mg IVPUSH Q6H PRN PRN Reason: ITCHING Hydromorphone HCl (Dilaudid) 1 mg IVPUSH ONETIME ONE Stop: 02/10/20 13:18 Last Admin: 02/10/20 13:49 Dose: 1 mg Documented by: Sodium Chloride (Normal Saline) 1,000 mls @ 999 drops/hr IV .BOLUS ONE Stop: 02/11/20 04:17 Last Admin: 02/10/20 13:40 Dose: 999 drops/hr Documented by: Metronidazole 500 mg/ Premix 100 mls @ 100 mls/hr IV ONETIME ONE Stop: 02/10/20 17:09 Last Admin: 02/11/20 14:38 Dose: Not Given Documented by: Ciprofloxacin/Dextrose 400 mg/ (Premix) 200 mls @ 200 mls/hr IV ONETIME ONE Stop: 02/10/20 17:09 Last Admin: 02/11/20 14:38 Dose: Not Given Documented by: Sodium Chloride (Normal Saline) 1,000 mls @ 75 mls/hr IV ASDIRECTED PENDING SALE TO [facility] Last Infusion: 02/12/20 09:32 Dose: Infused Documented by: Ciprofloxacin/Dextrose 400 mg/ (Premix) 200 mls @ 200 mls/hr IV Q12H PENDING SALE TO [facility] Last Admin: 02/11/20 05:32 Dose: 200 mls/hr Documented by: Metronidazole 500 mg/ Premix 100 mls @ 100 mls/hr IV Q8H PENDING SALE TO [facility] Last Admin: 02/12/20 09:07 Dose: 100 mls/hr Documented by: Ciprofloxacin/Dextrose 400 mg/ (Premix) 200 mls @ 200 mls/hr IV Q12H PENDING SALE TO [facility] Last Admin: 02/12/20 05:24 Dose: 200 mls/hr Documented by: Lisinopril (Prinivil) 20 mg PO DAILY PENDING SALE TO [facility] Last Admin: 02/13/20 09:41 Dose: 20 mg Documented by: Metronidazole (Flagyl) 500 mg PO Q8H PENDING SALE TO [facility] Last Admin: 02/13/20 09:41 Dose: 500 mg Documented by: Ondansetron HCl (Zofran) 4 mg IVPUSH ONETIME ONE Stop: 02/10/20 13:18 Last Admin: 02/10/20 13:46 Dose: 4 mg Documented by: Ondansetron HCl (Zofran) 4 mg IV Q4H PRN PRN Reason: Nausea/Vomiting Last Admin: 02/11/20 18:00 Dose: 4 mg Documented by: Promethazine HCl (Phenergan) 25 mg PO Q6H PRN PRN Reason: nausea, able to take PO Last Admin: 02/13/20 09:41 Dose: 25 mg Documented by: Sodium Chloride (Saline Flush) 10 ml FLUSH ASDIRECTED PRN PRN Reason: flush med Last Admin: 02/10/20 17:30 Dose: 10 ml Documented by: Tramadol HCl (Ultram) 50 mg PO Q6H PRN PRN Reason: Pain (moderate 4-6) Last Admin: 02/13/20 07:33 Dose: 50 mg Documented by: - Exam General: Reports: Alert, Oriented, Cooperative, No Acute Distress Lungs: Reports: Clear to Auscultation, Normal Respiratory Effort Cardiovascular: Reports: Regular Rate, Regular Rhythm GI/Abdominal Exam: Normal Bowel Sounds, Soft, No Distention, Tender (mild diffuse, improved)
== END 2020-02-13 12:55 | disposition home or self-care (01) | DRG 392 ==
LOC: FB.ED 12:27 → FB.MS 16:51
PROVIDERS: ADMIT Family Medicine; ATTEND Family Medicine
DX: K57.32 Diverticulitis of large intestine without perforation or abscess without bleeding (principal); N17.9 Acute kidney failure, unspecified; Z68.41 Body mass index [BMI] 40.0-44.9, adult; E86.0 Dehydration; N26.1 Atrophy of kidney (terminal); I10 Essential (primary) hypertension; E78.5 Hyperlipidemia, unspecified; G43.909 Migraine, unspecified, not intractable, without status migrainosus; Z79.899 Other long term (current) drug therapy; Z91.040 Latex allergy status; Z88.5 Allergy status to narcotic agent; Z88.0 Allergy status to penicillin; E78.00 Pure hypercholesterolemia, unspecified; Z87.01 Personal history of pneumonia (recurrent); E66.9 Obesity, unspecified; Z90.49 Acquired absence of other specified parts of digestive tract; Z90.710 Acquired absence of both cervix and uterus; F17.210 Nicotine dependence, cigarettes, uncomplicated
CPT/HCPCS: 36415; 74176; 80048; 80053; 81001; 82150; 83690; 84484; 85025; 85027; 87086; 93005; 96361; 96374; 96375; 99285-25; A9270-GY; J0744; J1170; J1200; J2405; J3490; J7030

== ENCOUNTER 2020-06-20 06:26 | Emergency (ER) | payer MEDICAID, OTHER ==
--- NOTE | 2020-06-20 07:19 | EDM.PDOC ---
ED HPI GENERAL MEDICAL PROBLEM - General Time Seen by Provider: 06/20/20 06:35 Source of Information: Reports: Patient History Limitations: Reports: No Limitations - History of Present Illness INITIAL COMMENTS - FREE TEXT/NARRATIVE: Patient presented to the ED because of left flank pain which started 2 days ago. She was diagnosed with UTI on 06/14 and has been taking nitrofurantoin 1 tablet BID. Her dysuria and frequency resolved, however, she now have flank pain with associated nausea but no vomiting. There is no fever/chills, cough or co;d. - Related Data Allergies Allergy/AdvReac Type Severity Reaction Status Date / Time latex Allergy Cannot Verified 06/20/20 07:27 Remember morphine Allergy Cannot Verified 06/20/20 07:27 Remember Penicillins Allergy Cannot Verified 06/20/20 07:27 Remember Home Meds: Home Meds lisinopriL [Lisinopril] 20 mg PO DAILY 02/11/20 [History] Nitrofurantoin Monohyd/M-Cryst [Macrobid 100 mg Capsule] 100 mg BID 06/20/20 [History] Past Medical History HEENT History: Reports: None Cardiovascular History: Reports: High Cholesterol, Hypertension Respiratory History: Reports: Other (See Below) Other Respiratory History: Pneumonia last year Gastrointestinal History: Reports: Diverticulosis Other Gastrointestinal History: Hx Diverticulitis Genitourinary History: Reports: Other (See Below) Other Genitourinary History: One fx kidney. One non fx. 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 Hematologic History: Reports: None Immunologic History: Reports: None Oncologic (Cancer) History: Reports: None Dermatologic History: Reports: None - Infectious Disease History Infectious Disease History: Reports: Chicken Pox, Measles, Mumps - Past Surgical History GI Surgical History: Reports: Appendectomy, Cholecystectomy, Other (See Below) Other GI Surgeries/Procedures: Lower bowl mass removed. Non CA. Female Surgical History: Reports: Hysterectomy, Salpingo-Oophorectomy Social & Family History - Family History Family Medical History: No Pertinent Family History - Caffeine Use Caffeine Use: Reports: Coffee ED ROS GENERAL - Review of Systems Review Of Systems: See Below Constitutional: Reports: No Symptoms HEENT: Reports: No Symptoms Respiratory: Reports: No Symptoms Cardiovascular: Reports: No Symptoms Endocrine: Reports: No Symptoms GI/Abdominal: Reports: Abdominal Pain : Reports: No Symptoms Musculoskeletal: Reports: No Symptoms Skin: Reports: No Symptoms ED EXAM, RENAL/ - Physical Exam Exam: See Below Exam Limited By: No Limitations General Appearance: Alert, No Apparent Distress Ears: Normal External Exam, Normal Canal Nose: Normal Inspection, Normal Mucosa Throat/Mouth: Normal Inspection, Normal Lips Head: Atraumatic, Normocephalic Neck: Normal Inspection, Supple, Non-Tender, Full Range of Motion Respiratory/Chest: No Respiratory Distress, Lungs Clear Cardiovascular: Normal Peripheral Pulses, Regular Rate, Rhythm, No Edema, No Gallop GI/Abdominal: Normal Bowel Sounds Back Exam: CVA Tenderness (L) Extremities: Normal Inspection Neurological: Alert, Oriented, CN II-XII Intact, Normal Cognition Course - Vital Signs Text/Narrative:: Labs reviewed and discussed with patient Toradol 60 mg IM x1 Zofran ODT 4mg PO x1 Last Recorded V/S: Last Vital Signs Temp 36.3 C 06/20/20 07:30 Pulse 76 06/20/20 07:30 Resp 18 06/20/20 07:30 BP 145/90 H 06/20/20 07:30 Pulse Ox 99 06/20/20 07:30 - Orders/Labs/Meds Labs: Laboratory Tests 06/20/20 06/20/20 06/20/20 Range/Units 06:28 06:45 06:45 WBC 13.6 H (3.0-10.3) x10-3/uL RBC 5.15 (3.60-5.20) x10(6)uL Hgb 14.8 (11.4-15.5) g/dL Hct 45.3 (34.2-48.2) % MCV 88.1 (76.7-100.5) fL MCH 28.8 (23.9-33.9) pg MCHC 32.7 (31.9-34.8) g/dL RDW 15.0 (12.3-16.5) % Plt Count 281 (151-488) x10(3)uL MPV 9.8 (7.1-12.4) fL Neut % (Auto) 48.3 (30.8-76.2) % Lymph % (Auto) 39.9 (18.4-52.1) % [place] % (Auto) 8.1 (4.4-15.7) % Eos % (Auto) 2.7 (0.6-8.1) % Baso % (Auto) 1.0 (0.2-1.5) % Neut # (Auto) 6.6 H (1.5-6.3) x10-3/uL Lymph # (Auto) 5.4 H (1.0-4.4) x10-3/uL [place] # (Auto) 1.1 H (0.3-1.0) x10-3/uL Eos # (Auto) 0.4 (0.0-0.8) x10-3/uL Baso # (Auto) 0.1 (0.0-0.1) x10-3/uL Sodium 140 (135-145) mmol/L Potassium 3.8 (3.5-5.3) mmol/L Chloride 104 (100-110) mmol/L Carbon Dioxide 24 (21-32) mmol/L BUN 12 (7-18) mg/dL Creatinine 0.8 (0.55-1.02) mg/dL Est Cr Clr Drug Dosing TNP Estimated GFR (MDRD) > 60 (>60) BUN/Creatinine Ratio 15.0 (9-20) Glucose 108 (80-116) mg/dL Calcium 9.1 (8.6-10.2) mg/dL Urine Color Yellow (YELLOW) Urine Appearance Clear (CLEAR) Urine pH 6.0 (5.0-6.5) Ur Specific [place] 1.020 (1.010-1.025) Urine Protein Negative (NEGATIVE) mg/dL Urine Glucose (UA) Normal (NORMAL) mg/dL Urine Ketones Negative (NEGATIVE) mg/dL Urine Occult Blood Negative (NEGATIVE) Urine Nitrite Negative (NEGATIVE) Urine Bilirubin Negative (NEGATIVE) Urine Urobilinogen Normal (NEGATIVE) mg/dL Ur Leukocyte Esterase Negative (NEGATIVE) Urine WBC 0-5 (0-5) Ur Squamous Epith Cells Few H (NS,R,O) Urine Bacteria Few H (NS) Meds: Medications Discontinued Medications Generic Name Dose Route Start Last Admin Trade Name Freq PRN Reason Stop Dose Admin Ketorolac Tromethamine 60 mg 06/20/20 07:21 06/20/20 07:27 Toradol IM 06/20/20 07:22 60 mg ONETIME ONE Administration Ondansetron HCl 4 mg 06/20/20 07:21 06/20/20 07:27 Zofran Odt PO 06/20/20 07:22 4 mg ONETIME ONE Administration Departure - Departure Time of Disposition: 19:30 Disposition: Home, Self-Care 01 Condition: Good Clinical Impression: UTI (urinary tract infection), Acute viral syndrome - Discharge Information Instructions: Urinary Tract Infection, Adult, Chronic Back Pain, [id number] Referrals: PCP,None [Ordering Only Provider] - Forms: ED Department Discharge Additional Instructions: Please read discharge instructions on UTI and low back pain Increase oral fluids Continue your nitrofurantoin until gone Take the following medications all at the same time: ibuprofen 800 mg with tylenol 1000 mg and flexeril 10 mg every 8 hours as needed for pain and muscle spasm Follow up as needed
[2020-06-20] MEDS ORDERED: Ondansetron 4 MG Tab.DIS PO ONE (07:21)
[2020-06-20] MEDS ORDERED: Ketorolac 60 MG/2 ML SDV IM ONE (07:21)
== END 2020-06-20 07:36 | disposition home or self-care (01) ==
LOC: FB.ED 06:26
DX: N39.0 Urinary tract infection, site not specified (principal); B34.9 Viral infection, unspecified; I10 Essential (primary) hypertension; E66.9 Obesity, unspecified; Z68.38 Body mass index [BMI] 38.0-38.9, adult; Z91.040 Latex allergy status; Z88.5 Allergy status to narcotic agent; Z88.0 Allergy status to penicillin; Z79.899 Other long term (current) drug therapy
CPT/HCPCS: 36415; 80048; 81001; 85025; 96372; 99284; A9270-GY; J1885

== ENCOUNTER 2020-11-26 14:22 | Emergency (ER) | payer BC ==
[2020-11-26] MEDS ORDERED: traMADol 50 MG Tab PO ONE (14:23)
--- NOTE | 2020-11-26 15:05 | EDM.PDOC ---
ED HPI GENERAL MEDICAL PROBLEM - General Chief Complaint: Genitourinary Problem Stated Complaint: KIDNEY ISSUES Time Seen by Provider: 11/26/20 15:05 Source of Information: Reports: Patient History Limitations: Reports: No Limitations - History of Present Illness INITIAL COMMENTS - FREE TEXT/NARRATIVE: 50-year-old female who reports beginning about one week ago she developed pain in her mid back bilaterally and the pain seems to radiate all up and down her back. She also has bilateral flank pain. The pain is worse with movement and it is a sharp and pulling type pain. She reports the pain as a 10/10. He has no arm or leg weakness. She does report that the pain seems to be worse also when she takes a deep breath and with palpation of the area. She feels that there is a s pasmy type pain associated with this well. He is currently denying any abdominal pain. She does have pain all across her upper chest and that pain is definitely worse with breathing and with palpation. She also feels that she has been short of breath with this as well. She also feels very tired and generally weak. She has had no cough. There has been no hemoptysis. She has been urinating normally and there has been no hematuria or dysuria. The pain has progressively been worsening with time. There are no other associated signs or symptoms. There are no other modifying factors. 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 DEVELOPER: Reports: Acetaminophen Bilateral Flank Pain Score (Numeric/FACES): 10 - Related Data Allergies Allergy/AdvReac Type Severity Reaction Status Date / Time latex Allergy Cannot Verified 06/20/20 07:27 Remember morphine Allergy Cannot Verified 06/20/20 07:27 Remember Penicillins Allergy Cannot Verified 06/20/20 07:27 Remember Home Meds: Home Meds lisinopriL [Lisinopril] 20 mg PO DAILY 02/11/20 [History] Nitrofurantoin Monohyd/M-Cryst [Macrobid 100 mg Capsule] 100 mg BID 06/20/20 [H istory] traMADol [Ultram] 50 mg PO Q6H PRN #10 tab 11/26/20 [Rx] Past Medical History HEENT History: Reports: Impaired Vision Cardiovascular History: Reports: High Cholesterol, Hypertension Respiratory History: Reports: Other (See Below) Other Respiratory History: Pneumonia last year Gastrointestinal History: Reports: Diverticulosis Other Gastrointestinal History: Hx Diverticulitis Genitourinary History: Reports: Other (See Below) Other Genitourinary History: Only has one functioning kidney. 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 - Infectious Disease History Infectious Disease History: Reports: Chicken Pox, Measles, Mumps - Past Surgical History GI Surgical History: Reports: Appendectomy, Cholecystectomy, Other (See Below) Other GI Surgeries/Procedures: Lower bowl mass removed. Non CA. Female Surgical History: Reports: Breast Reduction, Hysterectomy, Salpingo- Oophorectomy Social & Family History - Tobacco Use Tobacco Use Status *Q: Current Every Day Tobacco User Years of Tobacco use: 7 Packs/Tins Daily: 1 - Caffeine Use Caffeine Use: Reports: Coffee, Soda - Alcohol Use Alcohol Use History: Yes Alcohol Use Frequency: Socially - Recreational Drug Use Recreational Drug Use: No - Living Situation & Occupation Living situation: Reports: ED ROS GENERAL - Review of Systems Review Of Systems: See Below Constitutional: Reports: No Symptoms HEENT: Reports: No Symptoms Respiratory: Reports: Shortness of Breath, Pleuritic Chest Pain Cardiovascular: Reports: Chest Pain Endocrine: Reports: No Symptoms GI/Abdominal: Reports: No Symptoms : Reports: Flank Pain. Denies: Dysuria, Hematuria Musculoskeletal: Reports: Back Pain Skin: Reports: No Symptoms Neurological: Reports: No Symptoms Hematologic/Lymphatic: Reports: No Symptoms Immunologic: Reports: No Symptoms ED EXAM, GENERAL - Physical Exam Exam: See Below Exam Limited By: No Limitations General Appearance: Alert, WD/WN, Moderate Distress (Appears in some discomfort.) Eye Exam: Bilateral Eye: EOMI, Normal Inspection, PERRL Ears: Normal External Exam, Hearing Grossly Normal Ear Exam: Bilateral Ear: Auricle Normal Nose: Normal Inspection, Normal Mucosa, No Blood Throat/Mouth: Normal Inspection, Normal Voice Head: Atraumatic, Normocephalic Neck: Normal Inspection, Supple, Non-Tender, Full Range of Motion Respiratory/Chest: No Respiratory Distress, Lungs Clear, Normal Breath Sounds, No Accessory Muscle Use, Chest Non-Tender Cardiovascular: Normal Peripheral Pulses, Regular Rate, Rhythm, No Edema, No Murmur Peripheral Pulses: 2+: Radial (L), Radial (R) GI/Abdominal: Normal Bowel Sounds, Soft, Non-Tender, No Mass Back Exam: Full Range of Motion, Muscle Spasm, Paraspinal Tenderness (Throughout and all the way up and down the back on both sides.) Extremities: Normal Inspection, Normal Range of Motion, Non-Tender, No Pedal Edema, Normal Capillary Refill Neurological: Alert, Oriented, CN II-XII Intact, Normal Cognition, No Motor/Sensory Deficits Psychiatric: Normal Affect Skin Exam: Warm, Dry, Intact, Normal Color, No Rash #1 Interpretation EKG Date: 11/26/20 Time: 15:56 Rhythm: NSR Rate (Beats/Min): 80 Craig: Normal P-Wave: Present QRS: Normal ST-T: Other (Nonspecific ST-T changes) QT: Normal Comparison: No Change (No change from an EKG performed on 02/12/2020.) Course - Vital Signs Last Recorded V/S: Last Vital Signs Temp 36.9 C 11/26/20 14:41 Pulse 82 11/26/20 19:53 Resp 18 11/26/20 19:53 BP 133/87 11/26/20 19:53 Pulse Ox 98 11/26/20 19:53 - Orders/Labs/Meds Orders: Active Orders 24 hr Category Date Time Status Abdomen Pelvis wo Cont [CT] Stat Exams 11/26/20 17:31 Taken Ang Chest [CT] Stat Exams 11/26/20 17:29 Taken Ang Chest [CT] Stat Exams 11/26/20 20:42 Taken Peripheral IV Insertion Adult [OM.PC] Routine Oth 11/26/20 17:29 Ordered EKG 12 Lead [EK] Routine Ther 11/26/20 15:26 Ordered Labs: Laboratory Tests 11/26/20 11/26/20 11/26/20 Range/Units 15:33 15:33 15:33 WBC 9.4 (3.0-10.3) x10-3/uL RBC 5.28 H (3.60-5.20) x10(6)uL Hgb 15.6 H (11.4-15.5) g/dL Hct 46.7 (34.2-48.2) % MCV 88.4 (76.7-100.5) fL MCH 29.5 (23.9-33.9) pg MCHC 33.4 (31.9-34.8) g/dL RDW 14.0 (12.3-16.5) % Plt Count 290 (151-488) x10(3)uL MPV 9.8 (7.1-12.4) fL Neut % (Auto) 47.7 (30.8-76.2) % Lymph % (Auto) 40.9 (18.4-52.1) % Stokes % (Auto) 7.9 (4.4-15.7) % Eos % (Auto) 2.5 (0.6-8.1) % Baso % (Auto) 1.0 (0.2-1.5) % Neut # (Auto) 4.5 (1.5-6.3) x10-3/uL Lymph # (Auto) 3.8 (1.0-4.4) x10-3/uL Stokes # (Auto) 0.7 (0.3-1.0) x10-3/uL Eos # (Auto) 0.2 (0.0-0.8) x10-3/uL Baso # (Auto) 0.1 (0.0-0.1) x10-3/uL D-Dimer, Quantitative (0.0-0.59) mg/LFEU Sodium 140 (135-145) mmol/L Potassium 3.9 (3.5-5.3) mmol/L Chloride 102 (100-110) mmol/L Carbon Dioxide 26 (21-32) mmol/L BUN 11 (7-18) mg/dL Creatinine 1.0 (0.55-1.02) mg/dL Est Cr Clr Drug Dosing TNP Estimated GFR (MDRD) 59 L (>60) BUN/Creatinine Ratio 11.0 (9-20) Glucose 94 (80-116) mg/dL Calcium 8.9 (8.6-10.2) mg/dL Magnesium 2.1 (1.8-2.5) mg/dL Total Bilirubin 0.3 (0.1-1.3) mg/dL AST 80 H D (5-25) IU/L ALT 115 H D (12-36) U/L Alkaline Phosphatase 126 H (56-112) IU/L Troponin I 4.5 (4.0-60.3) pg/mL Total Protein 8.4 H (6.0-8.0) g/dL Albumin 3.9 (3.5-5.2) g/dL Globulin 4.5 g/dL Albumin/Globulin Ratio 0.9 Urine Color (YELLOW) Urine Appearance (CLEAR) Urine pH (5.0-6.5) Ur Specific [place] (1.010-1.025) Urine Protein (NEGATIVE) mg/dL Urine Glucose (UA) (NORMAL) mg/dL Urine Ketones (NEGATIVE) mg/dL Urine Occult Blood (NEGATIVE) Urine Nitrite (NEGATIVE) Urine Bilirubin (NEGATIVE) Urine Urobilinogen (NEGATIVE) mg/dL Ur Leukocyte Esterase (NEGATIVE) Urine RBC (0-5) Urine WBC (0-5) Ur Squamous Epith Cells (NS,R,O) Urine Bacteria (NS) 11/26/20 11/26/20 Range/Units 15:54 17:05 WBC (3.0-10.3) x10-3/uL RBC (3.60-5.20) x10(6)uL Hgb (11.4-15.5) g/dL Hct (34.2-48.2) % MCV (76.7-100.5) fL MCH (23.9-33.9) pg MCHC (31.9-34.8) g/dL RDW (12.3-16.5) % Plt Count (151-488) x10(3)uL MPV (7.1-12.4) fL Neut % (Auto) (30.8-76.2) % Lymph % (Auto) (18.4-52.1) % Stokes % (Auto) (4.4-15.7) % Eos % (Auto) (0.6-8.1) % Baso % (Auto) (0.2-1.5) % Neut # (Auto) (1.5-6.3) x10-3/uL Lymph # (Auto) (1.0-4.4) x10-3/uL Stokes # (Auto) (0.3-1.0) x10-3/uL Eos # (Auto) (0.0-0.8) x10-3/uL Baso # (Auto) (0.0-0.1) x10-3/uL D-Dimer, Quantitative 0.94 H (0.0-0.59) mg/LFEU Sodium (135-145) mmol/L Potassium (3.5-5.3) mmol/L Chloride (100-110) mmol/L Carbon Dioxide (21-32) mmol/L BUN (7-18) mg/dL Creatinine (0.55-1.02) mg/dL Est Cr Clr Drug Dosing Estimated GFR (MDRD) (>60) BUN/Creatinine Ratio (9-20) Glucose (80-116) mg/dL Calcium (8.6-10.2) mg/dL Magnesium (1.8-2.5) mg/dL Total Bilirubin (0.1-1.3) mg/dL AST (5-25) IU/L ALT (12-36) U/L Alkaline Phosphatase (56-112) IU/L Troponin I (4.0-60.3) pg/mL Total Protein (6.0-8.0) g/dL Albumin (3.5-5.2) g/dL Globulin g/dL Albumin/Globulin Ratio Urine Color Yellow (YELLOW) Urine Appearance Clear (CLEAR) Urine pH 6.0 (5.0-6.5) Ur Specific [place] 1.010 (1.010-1.025) Urine Protein Negative (NEGATIVE) mg/dL Urine Glucose (UA) Normal (NORMAL) mg/dL Urine Ketones Negative (NEGATIVE) mg/dL Urine Occult Blood Negative (NEGATIVE) Urine Nitrite Negative (NEGATIVE) Urine Bilirubin Negative (NEGATIVE) Urine Urobilinogen Normal (NEGATIVE) mg/dL Ur Leukocyte Esterase Negative (NEGATIVE) Urine RBC 0-5 (0-5) Urine WBC 0-5 (0-5) Ur Squamous Epith Cells Few H (NS,R,O) Urine Bacteria Few H (NS) Meds: Medications Discontinued Medications Generic Name Dose Route Start Last Admin Trade Name Freq PRN Reason Stop Dose Admin Sodium Chloride 500 mls @ 999 mls/hr 11/26/20 17:31 11/26/20 17:52 Normal Saline IV 11/26/20 18:01 999 mls/hr .BOLUS ONE Administration Sodium Chloride 10 ml 11/26/20 17:29 Sodium Chloride 0.9% 10 Ml Syringe FLUSH ASDIRECTED PRN Keep Vein Open - Radiology Interpretation Free Text/Narrative:: CT scan of abdomen and pelvis showed acute abnormality identified. There is no evidence of urinary tract stones or hydronephrosis. No cause for the patient's symptoms is demonstrated. There was evidence of fatty liver. 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 His as per the [facility] radiologist. CT of the chest showed no evidence of pulmonary emboli per the [facility] radiologist. There is also no other acute abnormality in the chest. - Re-Assessments/Exams Free Text/Narrative Re-Assessment/Exam: 11/26/20 19:50: The CT scan of the patient's abdomen and pelvis really showed no acute abnormality. This was performed secondary to the patient's flank pain her blood tests are all reassuringly normal. I did perform a d-dimer the patient was 0.94. Because of this week and ordered a CTA of her chest. The reading on that is still pending at this point. The patient remains awake and alert. Her pain has spontaneously come down and is now a 5/10. It is still worse with movement and with palpation. 11/26/20 20:30: The entry level lab technician was called and was told that the contrast bolus for the CTA was suboptimal and the nursing staff at been asked to start another IV so that we could perform the CTA. This was all discussed with the patient by the entry level lab technician and with input from the radiologist from [facility] and it was proposed the patient would need a repeat CT. She was in agreement with this and allowed them to proceed. 11/26/20 21:10: The repeat CT of the chest showed no evidence of PE. There was also no evidence of any other acute abnormality. 11/26/20 21:20: The patient is alert and oriented 3 she remained hemodynamically stable with normal O2 saturations and normal blood pressure and pulse. Exam still reveals he has tenderness with palpation over her entire bilateral paraspinous musculature. She also has tenderness to palpation along her flanks bilaterally as well. The pain is definitely worse with any kind of movement as well. With all of her blood tests and her urine test normal/reas suring, I think anything of a serious nature has been ruled out. This pain does seem to be musculoskeletal in nature and I discussed all of this with the patient as well as the findings CT scan of the patient's blood tests. The only abnormality and her blood tests was the slight elevation in her liver tests and the CT of her abdomen and pelvis did show evidence of fatty liver. I discussed this with the patient as well. I don't think that this anything to do with the patient's presenting but it is certainly something that she will need to have followed up. At this point, the patient appears to be stable for discharge. I did give the patient a take home pack of tramadol that she needed for her pain in addition to Tylenol. She was given an additional prescription for another 10 tramadol 50 mg as well. Patient reports that she has a history of stage III kidney disease although her kidney function today appears normal. I did tell her to continue to avoid any NSAIDs. She is to follow-up with her primary provider this week. Precautions and reasons for return to the emergency department were discussed with the patient while she was in the emergency department and were detailed in the patient's discharge instructions. Departure - Departure Time of Disposition: 21:40 Disposition: Home, Self-Care 01 Condition: Good Clinical Impression: Fatty liver Back pain Qualifiers: Back pain location: thoracic back pain Chronicity: acute Back pain laterality: bilateral Qualified Code(s): M54.6 - Pain in thoracic spine - Discharge Information Prescriptions: traMADol [Ultram] 50 mg PO Q6H PRN #10 tab PRN Reason: Moderate to severe pain Instructions: Acute Back Pain, Adult, Fatty Liver Disease, Nonalcoholic Fatty Liver Disease Diet, Adult Referrals: PCP,None [Primary Care Provider] - Forms: ED Department Discharge Additional Instructions: Your blood tests did show some evidence of liver inflammation. This would not be causing your back pain. It is indicative of something called fatty liver. I have given you some information on this. You'll need to follow-up with your primary doctor about this. Your blood clot screening test was also elevated. The CT scan of your chest showed no evidence of blood clots. The CAT scan of your abdomen and pelvis showed that your kidneys appeared to be normal and there was no evidence of kidney stones any other abnormality that would be causing your back pain. Your other blood tests and your urine tests were normal. I am unsure why you are having the back pain but as we discussed, I feel that it is likely musculoskeletal in nature. You can take the tramadol as needed for your pain. You can also take Tylenol for your pain as well. Follow-up with your primary provider this week. Back to the emergency department for increasing pain, worsening chest pain, high fever, severe weakness or any other concerning signs or symptoms. Sepsis Event Note (ED) - Evaluation Sepsis Screening Result: No Definite Risk - Focused Exam Vital Signs: Vital Signs Pulse Resp BP Pulse Ox 11/26/20 19:53 82 18 133/87 98 - My Orders Last 24 Hours: My Active Orders 11/26/20 15:26 EKG 12 Lead [EK] Routine 11/26/20 17:29 Ang Chest [CT] Stat Peripheral IV Insertion Adult [OM.PC] Routine 11/26/20 17:31 Abdomen Pelvis wo Cont [CT] Stat 11/26/20 20:42 Ang Chest [CT] Stat - Assessment/Plan Last 24 Hours: My Active Orders 11/26/20 15:26 EKG 12 Lead [EK] Routine 11/26/20 17:29 Ang Chest [CT] Stat Peripheral IV Insertion Adult [OM.PC] Routine 11/26/20 17:31 Abdomen Pelvis wo Cont [CT] Stat 11/26/20 20:42 Ang Chest [CT] Stat
[2020-11-26] MEDS ORDERED: Sodium Chloride 0.9% 10 ML Syringe FLUSH PRN (17:29)
[2020-11-26] MEDS ORDERED: Sodium Chloride 0.9% 500 ML IV ONE (17:31)
[2020-11-26] MEDS ORDERED: Iopamidol 755 Mg/ML 75 ML Bottle IV ONE (20:45)
== END 2020-11-26 22:00 | disposition home or self-care (01) ==
LOC: FB.ED 14:22
DX: M54.6 Pain in thoracic spine (principal); K76.0 Fatty (change of) liver, not elsewhere classified; I10 Essential (primary) hypertension; E66.9 Obesity, unspecified; Z91.040 Latex allergy status; Z88.5 Allergy status to narcotic agent; Z88.0 Allergy status to penicillin; Z79.899 Other long term (current) drug therapy; Z72.0 Tobacco use
CPT/HCPCS: 36415; 71275; 74176; 80053; 81001; 83735; 84484; 85025; 85379; 93005; 99284; A9270; J7040; Q9967

== ENCOUNTER 2023-03-05 17:57 | Emergency (ER) | payer BC, MEDICAID ==
[2023-03-05 18:43] LABS: APPEARANCE,URINE SLIGHTLY CLOUDY (CLEAR); BACTERIA,URINE OCCASIONAL (NS); BILIRUBIN,URINE MODERATE (NEGATIVE); COLOR,URINE ORANGE (YELLOW); GLUCOSE,URINE NORMAL (NORMAL); KETONES,URINE 15 mg/dL (NEGATIVE); LEUKOCYTE ESTERASE,URINE NEGATIVE (NEGATIVE); NITRITE,URINE POSITIVE (NEGATIVE); OCCULT BLOOD,URINE NEGATIVE (NEGATIVE); PROTEIN,URINE 100 mg/dL (NEGATIVE); RBC,URINE 0-5 (0-5); SQUAMOUS EPITHELIAL CELLS,UR OCCASIONAL (NS,R,O); UROBILINOGEN,URINE 4 mg/dL (NEGATIVE); WBC,URINE 0-5 (0-5)
[2023-03-05] MEDS ORDERED: Promethazine 25 MG/ML SDV IM ONE (19:05)
[2023-03-05] MEDS ORDERED: Ketorolac 30 MG/ML SDV IM ONE (19:05)
[2023-03-05 19:35] LABS: BASOPHILS ABSOLUTE AUTO 0.1 x10-3/uL (0.0-0.1); BASOPHILS PERCENT AUTO 0.8 % (0.2-1.5); EOSINOPHILS ABSOLUTE AUTO 0.4 x10-3/uL (0.0-0.8); EOSINOPHILS PERCENT AUTO 2.7 % (0.6-8.1); HEMATOCRIT 43.4 % (34.2-48.2); HEMOGLOBIN 14.3 g/dL (11.4-15.5); LYMPHOCYTES ABSOLUTE AUTO 5.3 x10-3/uL (1.0-4.4); MEAN CORPUSCULAR HEMOGLOBIN 29.2 pg (23.9-33.9); MEAN CORPUSCULAR VOLUME 88.6 fL (76.7-100.5); MEAN PLATELET VOLUME 9.4 fL (7.1-12.4); MONOCYTES ABSOLUTE AUTO 1.4 x10-3/uL (0.3-1.0); MONOCYTES PERCENT AUTO 9.9 % (4.4-15.7); NEUTROPHILS ABSOLUTE AUTO 7.1 x10-3/uL (1.5-6.3); NEUTROPHILS PERCENT AUTO 49.6 % (30.8-76.2); PLATELET COUNT,PLT 297 x10(3)uL (151-488); RED BLOOD CELL COUNT 4.89 x10(6)uL (3.60-5.20); RED CELL DISTRIBUTION WIDTH 14.3 % (12.3-16.5); WHITE BLOOD CELL COUNT,WBC 14.2 x10-3/uL (3.0-10.3)
[2023-03-05 19:37] LABS: BLOOD UREA NITROGEN,BUN 10 mg/dL (7-18); BUN/CREATININE RATIO 7.1 (9-20); CALCIUM 9.1 mg/dL (8.6-10.2); CARBON DIOXIDE,CO2 27 mmol/L (21-32); CHLORIDE,CL 104 mmol/L (100-110); CREATININE 1.4 mg/dL (0.55-1.02); EST CRCL DRUG DOSING (CG) 35.87 mL/min; ESTIMATED GFR 46 mL/min (>60); GLUCOSE RANDOM 95 mg/dL (80-116); POTASSIUM,K 3.8 mmol/L (3.5-5.3); SODIUM,NA 142 mmol/L (135-145)
[2023-03-05 19:39] LABS: C-REACTIVE PROTEIN 0.7 mg/dL (<0.33)
[2023-03-05 19:43] LABS: ALANINE AMINOTRANSFERASE,ALT 84 U/L (12-36); ALKALINE PHOSPHATASE 122 IU/L (56-112); ASPARTATE AMNIOTRANSFERASE,AST 56 IU/L (5-25); BILIRUBIN TOTAL 0.2 mg/dL (0.1-1.3); MAGNESIUM 2.1 mg/dL (1.8-2.5); PROTEIN TOTAL,TP 7.9 g/dL (6.0-8.0)
[2023-03-05] MEDS ORDERED: cefTRIAXone 1 GM Vial IM ONE (22:38)
== END 2023-03-05 23:04 | disposition home or self-care (01) ==
LOC: FB.ED 17:57
DX: N39.0 Urinary tract infection, site not specified (principal); E78.00 Pure hypercholesterolemia, unspecified; I10 Essential (primary) hypertension; E66.9 Obesity, unspecified; Z68.38 Body mass index [BMI] 38.0-38.9, adult; Z72.0 Tobacco use; Z91.040 Latex allergy status; Z88.5 Allergy status to narcotic agent; Z88.0 Allergy status to penicillin; Z79.84 Long term (current) use of oral hypoglycemic drugs; Z79.899 Other long term (current) drug therapy
CPT/HCPCS: 36415; 74176; 80053; 81001; 83690; 83735; 85025; 86140; 87086; 96372; 99284; J0696; J1885; J2550

== ENCOUNTER 2024-12-07 19:26 | Emergency (ER) | payer BC, MEDICAID ==
[2024-12-07] MEDS ORDERED: Cyclobenzaprine 10 MG Tab PO ONE (19:27)
[2024-12-07 19:50] LABS: BILIRUBIN,URINE NEGATIVE (NEGATIVE); GLUCOSE,URINE >1000 mg/dL (NORMAL); KETONES,URINE NEGATIVE (NEGATIVE); LEUKOCYTE ESTERASE,URINE NEGATIVE (NEGATIVE); NITRITE,URINE NEGATIVE (NEGATIVE); OCCULT BLOOD,URINE NEGATIVE (NEGATIVE); PROTEIN,URINE NEGATIVE (NEGATIVE); UROBILINOGEN,URINE NORMAL (NEGATIVE)
[2024-12-07 19:51] LABS: APPEARANCE,URINE CLEAR (CLEAR); COLOR,URINE YELLOW (YELLOW)
== END 2024-12-07 20:45 | disposition home or self-care (01) ==
LOC: FB.ED 19:26
DX: M54.50 Low back pain, unspecified (principal); I10 Essential (primary) hypertension; E78.00 Pure hypercholesterolemia, unspecified; Z90.49 Acquired absence of other specified parts of digestive tract; Z90.710 Acquired absence of both cervix and uterus; Z88.0 Allergy status to penicillin; Z88.5 Allergy status to narcotic agent; Z91.040 Latex allergy status; Z79.84 Long term (current) use of oral hypoglycemic drugs; Z79.899 Other long term (current) drug therapy
CPT/HCPCS: 81003; 99284; A9270; 99283